=== PATIENT | female | born 1985 | race Caucasian/White ===

== ENCOUNTER 2017-09-19 20:54 | Emergency (ER) | payer OTHER ==
--- NOTE | 2017-09-19 21:07 | PDOC ---
Rapid Medical Evaluation Time Seen by Provider: 09/19/17 21:05 Medical Evaluation: Allergies Allergy/AdvReac Type Severity Reaction Status Date / Time No Known Allergies Allergy Verified 08/18/13 20:52 09/19/17 21:05 I have performed a brief in-person evaluation of this patient. The patient presents with a chief complain of: right flank pain with urinary frequency/urgency with nausea/vomiting but deneis hematuria. Pt states similar to her previous Pyelonephritis Pt has H/O Pyelonephiritis and renal colic +++ Pertinent physical exam findings: I have ordered the following: UA/UPREG The patient will proceed to the ED for further evaluation. 09/19/17 21:09
[2017-09-19 21:09] VITALS: BP 127/57; PULSE 97; TEMP 98.4; BMI 40.2
[2017-09-19 21:53] LABS: URINE APPEARANCE CLOUDY; URINE BILIRUBIN NEGATIVE (NEGATIVE); URINE BLOOD 1+ (NEGATIVE); URINE COLOR YELLOW; URINE GLUCOSE (UA) NEGATIVE (NEGATIVE); URINE KETONE NEGATIVE (NEGATIVE); URINE NITRITE NEGATIVE (NEGATIVE)
[2017-09-19 22:14] LABS: URINE LEUK ESTERASE 3+ (NEGATIVE); URINE PROTEIN 1+ (NEGATIVE)
[2017-09-19 22:41] LABS: URINE BACTERIA RARE /hpf (NONE SEEN); URINE MUCUS FEW; URINE RBC 18 /hpf (0-3); URINE WBC 91 /hpf (3-5)
--- NOTE | 2017-09-19 23:37 | PDOC ---
History of Present Illness - General History Source: Patient Exam Limitations: No Limitations - History of Present Illness Initial Comments: 09/20/17 00:25 The patient is a 32 year old female, A0, with no significant past medical history, who presents to the emergency department with, sharp right sided abdominal pain and severe flank pain beginning yesterday. She describes her pain to be worsening and radiating upwards. She reports urinary frequency and urgency but, denies dysuria. She reports emesis. Secondary to her symptoms she reports a subjective fever and chills. She reports her last menses to be in late July. She denies abdominal pain and bleeding. She denies recent headache or dizziness. She denies diarrhea or constipation. She denies recent chest pain or shortness of breath. Allergies: NKA Past surgical history: None reported. Social history: Smoker. Denies EtOH use and recreational drug use. <Arlene Figueroa - Last Filed: 09/20/17 00:57> <Jon Flores - Last Filed: 09/20/17 02:43> - General Chief Complaint: Pain, Acute Stated Complaint: PAIN Time Seen by Provider: 09/19/17 21:05 Past History <Arlene Figueroa - Last Filed: 09/20/17 00:57> - Past Medical History Asthma: No Cancer: No Cardiac Disorders: No COPD: No Diabetes: No Disorders: Yes HTN: No Kidney Stones: Yes Seizures: No Thyroid Disease: No Other medical history: kidney infections - Reproductive History (#): 7 Para: 5 Cervical CA: No Dysfunctional Uterine Bleeding: No Ectopic : No Endometrial CA: No Polycystic Ovaries: No Therapeutic (s) & number: Yes (2) Tubal Ligation: No - Suicide/Smoking/Psychosocial Hx Smoking Status: Yes Smoking History: Current every day smoker Have you smoked in the past 12 months: Yes Number of Cigarettes Smoked Daily: 5 Information on smoking cessation initiated: No Hx Alcohol Use: No Drug/Substance Use Hx: No Substance Use Type: None Hx Substance Use Treatment: No <Jon Flores - Last Filed: 09/20/17 02:43> - Past Medical History Allergies/Adverse Reactions: Allergies Allergy/AdvReac Type Severity Reaction Status Date / Time No Known Allergies Allergy Verified 09/19/17 21:08 Home Medications: Ambulatory Orders No Home Medications 0 dose .ROUTE UTDICT 08/18/13 Acetaminophen [Tylenol .Regular Strength -] 650 mg PO Q6H #30 tablet 08/19/13 Nitrofurantoin Monohyd/M-Cryst [Macrobid] 100 mg PO BID #14 capsule 08/19/13 Pnv with Ca,No.71/Iron/FA [ Vitamin Tablet] 1 each PO DAILY #90 tablet 08/19/13 Cephalexin [Keflex] 500 mg PO QID #40 capsule 09/20/17 Review of Systems - Review of Systems Able to Perform ROS?: Yes Comments:: 09/20/17 00:26 CONSTITUTIONAL: +Subjective fever. +Chills. No fatigue EYES: No visual changes ENT: No ear pain, no sore throat CARDIOVASCULAR: No chest pain, no palpitations RESPIRATORY: No cough, no SOB GI: +abdominal pain. +Emesis. No constipation, no diarrhea GENITOURINARY: +Urinary frequency. +Urinary urgency. +Flank pain. No dysuria, no hematuria MUSKULOSKELETAL: No joint pain, no myalgias SKIN: No rash NEURO: No headache All Other Systems: Reviewed and Negative <Arlene Figueroa - Last Filed: 09/20/17 00:57> *Physical Exam - Vital Signs Last Vital Signs Temp Pulse Resp BP Pulse Ox 98.4 F 97 H 18 127/57 99 09/19/17 21:05 09/19/17 21:05 09/19/17 21:05 09/19/17 21:05 09/19/17 21:05 - Physical Exam Comments: 09/20/17 00:57 CONSTITUTIONAL: Well-appearing; well-nourished; in no apparent distress HEAD: Normocephalic; atraumatic EYES: PERRL; EOM intact ENMT: External appears normal; normal oropharynx NECK: Supple; non-tender; no cervical lymphadenopathy CARD: Normal S1, S2; no murmurs, rubs, or gallops RESP: Normal chest excursion with respiration; breath sounds clear and equal bilaterally; no wheezes, rhonchi, or rales ABD: +Mild right sided abdominal tenderness. +Severe right CVA tenderness. Soft , non-distended; no palpable organomegaly, no palpable hernias EXT: Normal ROM in all four extremities; non-tender to palpation; distal pulses intact SKIN: Warm, dry, no rash NEURO: No focal neurological deficiencies. <Arlene Figueroa - Last Filed: 09/20/17 00:57> - Vital Signs Last Vital Signs Temp Pulse Resp BP Pulse Ox 98.4 F 97 H 18 127/57 99 09/19/17 21:05 09/19/17 21:05 09/19/17 21:05 09/19/17 21:05 09/19/17 21:05 <Jon Flores - Last Filed: 09/20/17 02:43> ED Treatment Course - LABORATORY CBC & Chemistry Diagram: 09/20/17 00:12 09/20/17 00:12 - ADDITIONAL ORDERS Additional order review: Laboratory Results 09/19/17 21:10 Urine Color Yellow Urine Appearance Cloudy Urine pH 5.0 Ur Specific [place] 1.025 Urine Protein 1+ H Urine Glucose (UA) Negative Urine Ketones Negative Urine Blood 1+ H Urine Nitrite Negative Urine Bilirubin Negative Urine Urobilinogen 2.0 H Urine WBC (Auto) 91 Urine RBC (Auto) 18 Ur Epithelial Cells Few Urine Bacteria Rare Urine Mucus Few Urine HCG, Qual Positive - Medications Given in the ED: ED Medications Discontinued Medications Generic Name Dose Route Start Last Admin Trade Name Jose Albertoq PRN Reason Stop Dose Admin Acetaminophen 1,000 mg 09/20/17 00:10 09/20/17 00:14 Ofirmev Injection - IVPB 09/20/17 00:11 1,000 mg ONCE ONE Administration <Arlene Figueroa - Last Filed: 09/20/17 00:57> - LABORATORY CBC & Chemistry Diagram: 09/20/17 00:12 09/20/17 00:12 - ADDITIONAL ORDERS Additional order review: Laboratory Results 09/19/17 21:10 Urine Color Yellow Urine Appearance Cloudy Urine pH 5.0 Ur Specific [place] 1.025 Urine Protein 1+ H Urine Glucose (UA) Negative Urine Ketones Negative Urine Blood 1+ H Urine Nitrite Negative Urine Bilirubin Negative Urine Urobilinogen 2.0 H Urine WBC (Auto) 91 Urine RBC (Auto) 18 Ur Epithelial Cells Few Urine Bacteria Rare Urine Mucus Few Urine HCG, Qual Positive <Jon Flores - Last Filed: 09/20/17 02:43> Medical Decision Making - Medical Decision Making 09/20/17 01:55 Patient is a 32-year-old female, 6 para 5, at approximately 6 weeks gestation by dates who presents to the ER with tactile fevers, severe left- sided flank pain, urgency and urinary frequency. In the ER, patient is awake and alert, with significant left CVA tenderness to palpation. CBC reveals leukocytosis of 16,000 with predominance of neutrophils. Urinalysis reveals 91 WBCs per high-power field with some red cells present. Kidney ultrasound reveals no evidence of hydronephrosis or hydroureter. Urinary bladder is collapsed. Limited ultrasound reveals an IUP at 6 weeks and 4 days gestation with FH. I suspect pyelonephritis. Given the patient presentation, she is at high risk for complications will require admission for IV antibiotics. We'll consult FIELD TECHNICIAN. 09/20/17 02:29 Patient reassessed. Patient continues to complain of mild right flank discomfort. I've discussed the ultrasound findings and the plan of care with the patient however, given familial responsibilities, patient cannot be admitted inpatient and stay for IV antibiotics. Patient understands the risk associated with inadequately treated acute pyelonephritis in which includes but is not limited to severe sepsis, miscarriage and even . Patient will receive a dose of IV ceftriaxone will be discharged with by mouth cephalexin for further treatment. Patient instructed to return at the earliest opportunity. Patient expressed understanding. <Jon Flores - Last Filed: 09/20/17 02:43> *DC/Admit/Observation/Transfer - Attestations Scribe Attestion: 09/20/17 00:27 Documentation prepared by Arlene Figueroa, acting as medical imaging technologist for Jon Flores MD. <Arlene Figueroa - Last Filed: 09/20/17 00:57> - Attestations Physician Attestion: 09/20/17 01:54 The documentation was prepared by the scribe under my direct supervision. I have reviewed the documentation which correctly represents the findings, medical decision-making and critical action taken by me. <Jon Flores - Last Filed: 09/20/17 02:43> Diagnosis at time of Disposition: Acute pyelonephritis in first trimester, antepartum - Discharge Dispostion Disposition: AGAINST MEDICAL ADVICE Condition at time of disposition: Fair - Prescriptions Prescriptions: Cephalexin [Keflex] 500 mg PO QID #40 capsule - Patient Instructions Printed Discharge Instructions: DI for Kidney Infection Additional Instructions: Your leaving AGAINST MEDICAL ADVICE. You're at risk of severe overwhelming infection, miscarriage and even . Take antibiotics as advised. Return immediately at the earliest convenience. Follow-up with FIELD TECHNICIAN.
[2017-09-20] MEDS ORDERED: ACETAMINOPHEN INJECTION 100 ML IVPB ONE
[2017-09-20] MEDS ORDERED: SODIUM CHLORIDE 1,000 ML IV STA (00:10)
[2017-09-20] MEDS ORDERED: ACETAMINOPHEN 1000 MG/100 ML VIAL (NON FORMULARY) IVPB ONE (00:10)
[2017-09-20 00:42] LABS: BASOPHIL 0.1 % (0-2.0); EOSINOPHIL 0.1 % (0-4.5); MCH 30.1 pg (25.7-33.7); MCHC 33.7 g/dl (32.0-36.0); MEAN CELL VOLUME 89.2 fl (80-96); MEAN PLT VOLUME 8.5 fl (7.5-11.1); NEUTROPHILS 90.9 % (42.8-82.8); PLATELET COUNT 273 K/MM3 (134-434); RDW 12.7 % (11.6-15.6); WHITE BLOOD COUNT 16.3 K/mm3 (4.0-10.0)
[2017-09-20 01:08] LABS: ALBUMIN 4.1 g/dl (3.4-5.0); ALK PHOS 52 U/L (45-117); ANION GAP 11 (8-16); BILIRUBIN,TOTAL 0.4 mg/dL (0.2-1.0); CALCIUM 8.7 mg/dL (8.5-10.1); CO2 23 mmol/L (21-32); CREATININE 0.6 mg/dL (0.55-1.02); GLUCOSE,RANDOM 94 mg/dL (74-106); SGOT/AST 6 U/L (15-37); SGPT/ALT 13 U/L (12-78); TOT PROT 7.5 g/dl (6.4-8.2)
[2017-09-20] MEDS ORDERED: CEFTRIAXONE 1 GM in DEXTROSE 5%-WATER - 50 ML IVPB ONE (01:21)
[2017-09-20] MEDS ORDERED: CEFTRIAXONE 1 GM/50 ML BAG ONE (02:22)
[2017-09-20 12:20] LABS: URINE LEUK ESTERASE 1+ (NEGATIVE)
== END 2017-09-20 03:03 | disposition left against medical advice (07) ==
LOC: JER 20:54
PROC: 3E033NZ Introduction of Analgesics, Hypnotics, Sedatives into Peripheral Vein, Percutaneous Approach (ICD-10-PCS; principal; 2017-09-19)
PROC: 3E03329 Introduction of Other Anti-infective into Peripheral Vein, Percutaneous Approach (ICD-10-PCS; 2017-09-19)
PROC: 3E0337Z Introduction of Electrolytic and Water Balance Substance into Peripheral Vein, Percutaneous Approach (ICD-10-PCS; 2017-09-19)
DX: O23.01 Infections of kidney in pregnancy, first trimester (principal); Z3A.01 Less than 8 weeks gestation of pregnancy
CPT/HCPCS: 36415; 76775-TC; 76801-TC; 76856-TC; 80053; 81003; 81015; 84702; 84703; 85025; 87086; 87186; 96361; 96365; 96375; 99284-25

== ENCOUNTER 2017-12-07 13:11 | Day surgery (SDC) | payer OTHER ==
[2017-12-07 13:17] VITALS: BMI 19.1
--- NOTE | 2017-12-07 13:26 | PDOC ---
History of Present Illness - General History Source: Patient - History of Present Illness Timing/Duration: reports: constant, getting worse Abdominal Pain Onset Location: reports: suprapubic <Eusebio Barrientos - Last Filed: 12/07/17 18:29> <Wilton Damian - Last Filed: 12/12/17 02:46> - General Chief Complaint: Pain Stated Complaint: ABD PAIN (17 WKS ) Time Seen by Provider: 12/07/17 13:21 Past History - Past Medical History Asthma: No Cancer: No Cardiac Disorders: No COPD: No Diabetes: No Disorders: Yes HTN: No Kidney Stones: Yes Seizures: No Thyroid Disease: No - Reproductive History (#): 7 Para: 5 Cervical CA: No Dysfunctional Uterine Bleeding: No Ectopic : No Endometrial CA: No Polycystic Ovaries: No Therapeutic (s) & number: Yes (2) Tubal Ligation: No - Suicide/Smoking/Psychosocial Hx Smoking Status: Yes Smoking History: Current every day smoker Have you smoked in the past 12 months: Yes Number of Cigarettes Smoked Daily: 10 Information on smoking cessation initiated: No Hx Alcohol Use: No Drug/Substance Use Hx: No Substance Use Type: None Hx Substance Use Treatment: No <Eusebio Barrientos - Last Filed: 12/07/17 18:29> <Wilton Damian - Last Filed: 12/12/17 02:46> - Past Medical History Allergies/Adverse Reactions: Allergies Allergy/AdvReac Type Severity Reaction Status Date / Time No Known Allergies Allergy Verified 12/07/17 13:17 Home Medications: Ambulatory Orders Pnv with Ca,No.71/Iron/FA [ Vitamin Tablet] 1 each PO DAILY #90 tablet 08/19/13 Acetaminophen [Tylenol .Regular Strength -] 650 mg PO Q4H PRN tablet 12/07/17 Ibuprofen [Motrin -] 600 mg PO Q4H PRN #20 tablet 12/07/17 Review of Systems - Review of Systems Constitutional: No: Chills, Fever ABD/GI: Yes: Abdominal cramping. No: Nausea, Vomiting : No: Dysuria <Eusebio Barrientos - Last Filed: 12/07/17 18:29> *Physical Exam - Vital Signs Last Vital Signs Temp Pulse Resp BP Pulse Ox 98.7 F 93 H 18 115/58 98 12/07/17 13:13 12/07/17 13:13 12/07/17 13:13 12/07/17 13:13 12/07/17 13:13 - Physical Exam General Appearance: Yes: Appropriately Dressed. No: Apparent Distress HEENT: positive: Normal Voice Neck: positive: Supple Respiratory/Chest: negative: Respiratory Distress Female Pelvic Exam: positive: normal adnexa, vaginal bleeding, other (mod amount of vag bleed, unable to visualize or palpate cervix (pt reports she has been told she has a funneled shaped uterus, has history of difficulty finding cervix on pelvic exam)) Gastrointestinal/Abdominal: positive: Soft. negative: Tender, Distended, Guarding, Rebound Musculoskeletal: negative: CVA Tenderness Integumentary: positive: Dry, Warm Neurologic: positive: Fully Oriented, Alert, Normal Mood/Affect <Eusebio Barrientos - Last Filed: 12/07/17 18:29> - Vital Signs Last Vital Signs Temp Pulse Resp BP Pulse Ox 98.6 F 75 18 115/74 100 12/07/17 21:59 12/07/17 21:59 12/07/17 21:59 12/07/17 21:59 12/07/17 22:00 <Wilton Damian - Last Filed: 12/12/17 02:46> ED Treatment Course - LABORATORY CBC & Chemistry Diagram: 12/07/17 13:38 12/07/17 13:38 <uEsebio Barrientos - Last Filed: 12/07/17 18:29> - LABORATORY CBC & Chemistry Diagram: 12/07/17 13:38 12/07/17 13:38 - ADDITIONAL ORDERS Additional order review: 12/07/17 13:38 RBC 4.30 MCV 90.9 MCHC 32.9 RDW 13.0 MPV 8.0 Neutrophils % 70.1 D Lymphocytes % 21.6 D Monocytes % 6.2 Eosinophils % 1.9 D Basophils % 0.2 - Medications Given in the ED: ED Medications Discontinued Medications Generic Name Dose Route Start Last Admin Trade Name Freq PRN Reason Stop Dose Admin Sodium Chloride 1,000 mls @ 1,000 mls/hr 12/07/17 13:35 12/07/17 14:29 Normal Saline - IV 12/07/17 14:34 1,000 mls/hr ASDIR STA Administration Oxytocin/Sodium Chloride 20 unit in 1,000 mls @ 200 mls/hr 12/07/17 15:00 15:31 Normal Saline+20 Units Oxytocin - IV 200 mls/hr ASDIR PAULETTE Administration Ketorolac Tromethamine 30 mg 12/07/17 20:35 12/07/17 21:15 Toradol Injection - IVPUSH 12/07/17 20:36 30 mg ONCE ONE Administration Meperidine HCl 50 mg 12/07/17 15:51 12/07/17 15:58 Demerol Injection - IM 12/07/17 15:52 50 mg ONCE ONE Administration Misoprostol 200 mcg 12/07/17 15:45 12/07/17 15:58 Cytotec - PO 12/07/17 15:46 200 mcg ONCE ONE Administration Morphine Sulfate 4 mg 12/07/17 15:16 12/07/17 15:31 Morphine Injection - IVPUSH 12/07/17 15:17 4 mg ONCE ONE Administration <Wilton Damian - Last Filed: 12/12/17 02:46> Medical Decision Making - Medical Decision Making 12/07/17 13:25 32-year-old female, , (s/p 1 spon AB), approximately 17 weeks by dates, frequent utis/pylelo, here with abdominal pain and vaginal bleed. Patient states for the past week she's noticed vaginal spotting, but was waiting until she saw her primary doctor next week to seek evaluation. Has not yet had for unclear reasons but states she has her first appt next Friday. This a.m. pt developed abdominal cramping that is approximately 2 minutes apart. Has not noticed any clots and no nausea, vomiting, dysuria, fever or chills. Patient was seen in the ED 09/20/2017 when she was initially told she was . Had ultrasound then revealing an IUP at approximately 6 weeks on report. Beta was >50K at time. See exam Possible miscarriage in 2nd trimester Stable in ED w/ benign abd and moderate blood in vault, unable to visualize or palpate cervical os -labs -US -IVF -OB c/s 12/07/17 13:[address] Briceno of OB, aware labs and ultrasound are pending. M.D. also requesting transvaginal US to assess cervical length. Wants to be contacted once ultrasound reports comes back 12/07/17 14:50 Ultrasound read as 14 weeks IUP with no heart rate detected. Beta today over 300. Most likely missed AB. As per Dr Briceno, patient to get Pitocin drip and a dose of po Cytotec in ED. M.D. wants to be contacted once patient begins to abort. Wants tissue collected and sent to lab 12/07/17 17:13 No passage of tissue at this time. Pain free at this time and appears comfortable. Will contact [facility] as patient may need D&C in OR 12/07/17 17:22 As per [facility], give 400 mcg of cytotec vaginally and is enroute to see patient in ED 12/07/17 18:10 Multiple large blood clots in urinal, resembling possible tissue. Tissue collected in formalin container and reviewed by Dr. Briceno who is now at bedside. States specimen is blood clot and not actually parts of fetus. Evaluating patient now 12/07/17 18:25 Dr. Briceno was able to retrieve intact fetus during pelvic exam. Fetus placed in formalin jar to be sent to pathology. As per [facility], patient needs to be admitted for D&C for incomplete AB, has not yet passed placenta <Eusebio Barrientos - Last Filed: 12/07/17 18:29> - Medical Decision Making The patient was seen and evaluated in conjunction with VIRGINIA Barrientos under my direct supervision, ancillary studies were reviewed. I independently interviewed and evaluated the patient and I agree with the plan as outlined by VIRGINIA Barrientos . <Wilton Damian - Last Filed: 12/12/17 02:46> *DC/Admit/Observation/Transfer - Discharge Dispostion Admit: Yes <Eusebio Barrientos - Last Filed: 12/07/17 18:29> <Wilton Damian - Last Filed: 12/12/17 02:46> Diagnosis at time of Disposition: Missed - Discharge Dispostion Disposition: HOME Condition at time of disposition: Stable
[2017-12-07] MEDS ORDERED: SODIUM CHLORIDE 1,000 ML IV STA (13:35)
[2017-12-07 13:55] LABS: BASO % 0.2 % (0-2.0); EOS % 1.9 % (0-4.5); HEMATOCRIT 39.1 % (32.4-45.2); HEMOGLOBIN 12.9 GM/dL (10.7-15.3); LYMPH % 21.6 % (8-40); MCH 29.9 pg (25.7-33.7); MCHC 32.9 g/dl (32.0-36.0); MEAN CELL VOLUME 90.9 fl (80-96); MONO % 6.2 % (3.8-10.2); NEUT % 70.1 % (42.8-82.8); PLATELET COUNT 240 K/MM3 (134-434); WHITE BLOOD COUNT 7.9 K/mm3 (4.0-10.0)
[2017-12-07 14:07] LABS: INR 1.06 (0.82-1.09)
[2017-12-07 14:12] LABS: ALBUMIN 3.3 g/dl (3.4-5.0); ANION GAP 10 (8-16); BLOOD UREA NITROGEN 5 mg/dL (7-18); CALCIUM 8.5 mg/dL (8.5-10.1); CHLORIDE 106 mmol/L (98-107); CO2 25 mmol/L (21-32); CREATININE 0.5 mg/dL (0.55-1.02); GLUCOSE,RANDOM 72 mg/dL (74-106); POTASSIUM 3.8 mmol/L (3.5-5.1); SGOT/AST 10 U/L (15-37); SGPT/ALT 13 U/L (12-78); SODIUM 141 mmol/L (136-145)
[2017-12-07 14:14] LABS: ALK PHOS 54 U/L (45-117); BILIRUBIN,TOTAL 0.4 mg/dL (0.2-1.0); TOT PROT 7.1 g/dl (6.4-8.2)
[2017-12-07] MEDS ORDERED: OXYTOCIN 20 UNITS in 0.9% NS 20 UNIT/1,000 ML INFUS.BAG IV SCH (15:00)
[2017-12-07] MEDS ORDERED: morphine CARPU-JECT 4 MG/1 ML DISP.SYRIN IVPUSH ONE (15:16)
[2017-12-07] MEDS ORDERED: OXYTOCIN 10 UNITS/ML VIAL ONE ×2 (15:17→20:09)
[2017-12-07] MEDS ORDERED: MORPHINE SULFATE 10 MG/1 ML *VIAL ONE (15:26)
[2017-12-07] MEDS ORDERED: MISOPROSTOL 200 MCG TABLET PO ONE ×2 (15:30→15:45)
[2017-12-07] MEDS ORDERED: MISOPROSTOL 100 MCG TABLET PV ONE ×2 (15:30→17:30)
[2017-12-07] MEDS ORDERED: MISOPROSTOL 200 MCG TABLET PV ONE (15:30)
[2017-12-07] MEDS ORDERED: MEPERIDINE HCL CARPU-JECT 50 MG/1 ML DISP.SYRIN IM ONE (15:51)
[2017-12-07] MEDS ORDERED: MEPERIDINE HCL CARPU-JECT 50 MG/1 ML DISP.SYRIN ONE (15:54)
--- NOTE | 2017-12-07 18:36 | HP ---
Past Medical History - Primary Care Physician PCP:: Altagracia Briceno - Admission Chief Complaint: 32 yrs , LMP 08/07/17 17.4 weeks is admitted for Incomplete ab History of Present Illness: h/o pregn diagnosed when she visited ER on 09/20/17 sono showed 6.4 weeks sliup she states she went for follow up at [address] [place] [address] clinic for last 1 week she c/o vaginal bleeding on & off c/o pain & cramps since today AM sono done today ut is 13.9x8.7 . 14 weeks IUP, absent FHR . pt passed fetus in ER at 6.30 PM History Source: Patient Limitations to Obtaining History: No Limitations - Past Medical History STOCK CHECKER: No: Migraine, Seizure Cardiovascular: No: HTN, Murmur Pulmonary: No: Asthma Renal/: Yes: UTI (diagnosed in the clinic 1 month ago. h/o recurrent UTI , pt follows with fish fryer) ...: 6 ...Para: 4 (3 , 2006,2006, 2011) ...Term: 3 ...: 1 (c/section at 26 weeks at [facility] in 2012 2lbs ) ...Induced : 1 (2015) ...LMP: 08/07/17 ... Weeks Gestation by Dates: 17.3 ...EDC by Dates: 04/14/18 ...EDC by Sono: 04/14/18 Heme/Onc: Yes: Anemia Infectious Disease: Yes: Other (denies h/o std) Psych: Yes: Other (denies mental health disorders) Additional Medical History: EFM 170 occ variable decel. Cat 2 no contraction - Past Surgical History Past Surgical History: Yes: None, (2012 for 26 weeks gestation at [facility] ) Hx Myomectomy: No Hx Transabdominal Cerclage: No - Smoking History Smoking history: Current every day smoker Have you smoked in the past 12 months: Yes Aproximately how many cigarettes per day: 10 - Alcohol/Substance Use Hx Alcohol Use: No History of Substance Use: reports: None Home Medications - Allergies Allergies/Adverse Reactions: Allergies Allergy/AdvReac Type Severity Reaction Status Date / Time No Known Allergies Allergy Verified 12/07/17 13:17 - Home Medications Home Medications: Ambulatory Orders Pnv with Ca,No.71/Iron/FA [ Vitamin Tablet] 1 each PO DAILY #90 tablet 08/19/13 Physical Exam - Maternity Vital Signs: Vital Signs Temperature 97.5 F L 12/07/17 16:27 Pulse Rate 85 12/07/17 16:27 Respiratory Rate 18 12/07/17 16:27 Blood Pressure 118/67 12/07/17 16:27 O2 Sat by Pulse Oximetry (%) 99 12/07/17 16:27 Constitutional: Yes: Well Nourished Eyes: Yes: WNL HENT: Yes: WNL, Normocephalic Neck: Yes: WNL Cardiovascular: Yes: WNL Lungs: Clear to auscultation Breast(s): Yes: WNL - Abdominal Exam/OB Fundal Height: 14 (14 weeks size ut, passed fetus in ER still born, placenta not passed , blood clots removed from cervx & vagina ) Number of Fetuses: Single Contractions: Yes Intensity: Strong Heart Rate (range): abs - Vaginal Exam/OB Vaginal Bleediing: Yes, Fresh Blood (bleeding with blood clots) Speculum Exam: Yes Dilatation (cm): os ope - Physical Exam Musculoskeletal: Yes: WNL Extremities: Yes: WNL. No: Calf Tenderness Edema: No Integumentary: Yes: WNL Deep Tendon Reflex Grade: Normal +2 ...Motor Strength: WNL Psychiatric: Yes: WNL - Labs Lab Results: CBC, BMP 12/07/17 13:38 12/07/17 13:38 Laboratory Tests 09/20/17 12/07/17 12/07/17 00:12 13:21 13:38 PT with INR 12.00 H INR 1.06 AST ALT Beta HCG, Quant 67366.7 Blood Type O POSITIVE Antibody Screen Negative 12/07/17 13:38 PT with INR INR AST 10 L ALT 13 Beta HCG, Quant 313.1 Blood Type Antibody Screen Problem List - Problems (1) 17 weeks gestation of Code(s): Z3A.17 - 17 WEEKS GESTATION OF (2) demise Code(s): JXK8643 - (3) Incomplete Code(s): O03.4 - INCOMPLETE SPONTANEOUS WITHOUT COMPLICATION (4) Previous section Code(s): Z98.891 - HISTORY OF UTERINE SCAR FROM PREVIOUS SURGERY Assessment/Plan 32 yrs 17.3 weeks by dates & sono , demise, passed fetus in ER after giving cytotec & iv pitocin , placenta still retained , bleeding heavy plan evacuation curettage under GA
[2017-12-07] MEDS ORDERED: PROPOFOL 20 ML ONE (19:39)
[2017-12-07] MEDS ORDERED: MIDAZOLAM HCL 2 MG/2 ML SINGLE DOSE VIAL ONE (19:39)
[2017-12-07] MEDS ORDERED: IBUPROFEN 400 MG TABLET (FP) PO PRN (19:43)
[2017-12-07] MEDS ORDERED: ACETAMINOPHEN 325 MG TABLET (FP) PO PRN (19:43)
[2017-12-07] MEDS ORDERED: ceFAZolin SODIUM 1 GM VIAL IVPB ONE (19:56)
[2017-12-07] MEDS ORDERED: ceFAZolin SODIUM 1 GM VIAL ONE (19:59)
[2017-12-07] MEDS ORDERED: DEXAMETHASONE SOD PHOSPHATE 4 MG/1 ML VIAL ONE (19:59)
--- NOTE | 2017-12-07 20:17 | OP ---
Operative Note - Note: Operative Date: 12/07/17 Pre-Operative Diagnosis: 17 qweeks demise, Incomplete Operation: evacuation curettage Findings: ut 14 weeks size , blood clots removed from vagina & cervix. cx os open placenta at os , removed with ring forcep 12 #canula used , suction done followed by curettage adnexa [employer] attendant Surgeon: Altagracia Briceno Anesthesiologist/CRIB TENDER: Jenni Valadez Anesthesia: General Specimens Removed: placenta & uterine contents , curettings Estimated Blood Loss (mls): 100 Fluid Volume Replaced (mls): 400 (iv ancef 1 gm in OR ) Operative Report Dictated: Yes
[2017-12-07] MEDS ORDERED: ONDANSETRON 4 MG/2 ML VIAL IVPUSH PRN (20:30)
[2017-12-07] MEDS ORDERED: KETOROLAC TROMETHAMINE 30 MG/1 ML VIAL IVPUSH ONE (20:35)
[2017-12-07] MEDS ORDERED: LACTATED RINGERS SOLUTION 1,000 ML IV SCH (20:45)
--- NOTE | 2017-12-07 21:01 | OP ---
DATE OF OPERATION: 12/07/2017 PREOPERATIVE DIAGNOSIS: Seventeen weeks demise incomplete . OPERATION DONE: Evacuation and curettage. ANESTHESIA: General. ANESTHESIOLOGIST: Jenni Valadez DO FINDINGS: This is a 32-year-old, 6, para 3-1-1-4, LMP on August 07, 2017, 17.3 weeks gestation by early sono . She is diagnosed demise of 14 weeks.on sono Patient passed the fetus in the emergency room and the placenta still retained, is bleeding heavy, so patient taken in the OR. PROCEDURE: Patient is taken to the operating room table and general anesthesia was given, lithotomy position. Pubis, perineum, vagina was painted with Betadine, draped in usual manner. Time out was done. Pelvic examination was done. Uterus was anteverted, 14 weeks size. Cervix was posterior. Vaginal was full of blood clots. Adnexa was not palpable. Blood clots were removed from the vagina and the cervix. Weighted speculum was put and anterior lip of the cervix was held with a ring forceps and then with ovum forceps. The placenta, which was seen at the os, was removed and then number 12 suction cannula was introduced into the uterine cavity and suction curettage was done, then curetting was done. Gritty sensation was felt. Completion of the procedure was attained. Instruments were removed. Pelvic examination was done. Uterus was anteverted and firm, now os was closing. Patient tolerated procedure well. Estimated blood loss was 100 mL. She received 1 g of IV Ancef prophylactically. She was transferred to the recovery room in stable condition. Andrea [id number] MTDD
[2017-12-07] MEDS ORDERED: KETOROLAC TROMETHAMINE 30 MG/1 ML VIAL ONE (21:15)
[2017-12-07 21:39] VITALS: PULSE 75
[2017-12-07 22:01] VITALS: BP 115/74; TEMP 98.6
== END 2017-12-07 22:30 | disposition home or self-care (01) ==
LOC: JER 13:11 → JASUSAT 18:27 → J3W 21:36 → JASUSAT 22:30
PROVIDERS: ATTEND Obstetrics & Gynecology
PROC: 10D17ZZ Extraction of Products of Conception, Retained, Via Natural or Artificial Opening (ICD-10-PCS; principal; 2017-12-07 20:00)
DX: O02.1 Missed abortion (principal); Z3A.17 17 weeks gestation of pregnancy
CPT/HCPCS: 36415; 76801-TC; 76817-TC; 80053; 84702; 85025; 85610; 86850; 86900; 86901; 94760; 99282-25

== ENCOUNTER 2019-05-26 17:12 | Emergency (ER) | payer OTHER ==
--- NOTE | 2019-05-26 17:25 | PDOC ---
Rapid Medical Evaluation Time Seen by Provider: 05/26/19 17:23 Medical Evaluation: Allergies Allergy/AdvReac Type Severity Reaction Status Date / Time No Known Allergies Allergy Verified 12/07/17 13:17 05/26/19 17:23 HPI:Bleeding PV x 3 weeks PE: No gross deficits ORDERS: Labs Discharge Disposition - Diagnosis Dysfunctional uterine bleeding - Referrals - Patient Instructions - Post Discharge Activity
[2019-05-26 17:28] VITALS: BP 114/80; PULSE 89; TEMP 98.2; BMI 27.4
[2019-05-26 18:04] LABS: BASO % 1.3 % (0-2.0); EOS % 2.3 % (0-4.5); HEMATOCRIT 41.3 % (32.4-45.2); HEMOGLOBIN 13.9 GM/dL (10.7-15.3); LYMPH % 28.5 % (8-40); MCH 30.2 pg (25.7-33.7); MCHC 33.6 g/dl (32.0-36.0); MEAN CELL VOLUME 89.9 fl (80-96); MEAN PLT VOLUME 8.1 fl (7.5-11.1); NEUT % 61.9 % (42.8-82.8); PLATELET COUNT 295 K/MM3 (134-434); RBC 4.59 M/mm3 (3.60-5.2); RDW 13.2 % (11.6-15.6); WHITE BLOOD COUNT 8.8 K/mm3 (4.0-10.0)
[2019-05-26 18:20] LABS: INR 1.04 (0.83-1.09); PROTHROMBIN TIME (PATIENT) 12.3 SEC (9.7-13.0)
[2019-05-26] MEDS ORDERED: LIDOCAINE 5% TOPICAL PATCH ONE ×2 (19:08→19:22)
--- NOTE | 2019-05-26 19:11 | PDOC ---
History of Present Illness - General Chief Complaint: Vaginal Bleeding Stated Complaint: VAGINAI BLEEDING Time Seen by Provider: 05/26/19 17:23 - History of Present Illness Initial Comments: 05/26/19 19:28 CHIEF COMPLAINT: vaginal bleeding, abscess HISTORY OF PRESENT ILLNESS: 34 yo s/p D&C for demise at 17 wks last year, presents to ED with vaginal bleeding x 2 weeks and bump to R shoulder. Reports waking up on Friday with bump and the pain ahd size of the bump has increased since then. Patient reports that she is using the Depo shot and that she has had her period for the last two weeks, but "it stopped when I got to the ER." She denies any fever, chills, nausea, vomiting, diarrhea. Patient denies any chance of . No recent travel or sick contacts. PAST MEDICAL HISTORY: Denies past medical history FAMILY HISTORY: Denies SOCIAL HISTORY:Denies tobacco, alcohol, illicit drug use. SURGICAL HISTORY: Denies ALLERGIES: No known drug allergies REVIEW OF SYSTEMS General/Constitutional: Denies fever or chills. Denies weakness, weight change. HEENT: Denies change in vision. Denies ear pain or discharge. Denies sore throat. Cardiovascular: Denies chest pain or shortness of breath. Respiratory: Denies cough, wheezing, or hemoptysis. Gastrointestinal: Denies nausea, vomiting, diarrhea or constipation. Denies rectal bleeding. Genitourinary: Vaginal bleeding x 2 weeks. Musculoskeletal: Denies joint or muscle swelling or pain. Denies neck or back pain. Skin: Painful bump to R upper back x 3 days. Denies rash or easy bruising. Neurologic: Denies headache, vertigo, loss of consciousness, or loss of sensation. PHYSICAL EXAM General Appearance: Well-appearing, appropriately dressed. No apparent distress , no intoxication. HEENT: EOMI, PERRLA, normal ENT inspection, normal voice, TMs normal, pharynx normal. No conjunctival pallor. No photophobia, scleral icterus. Neck: Supple. Trachea midline. No tenderness, rigidity, carotid bruit, stridor , lymphadenopathy, or thyromegaly. Respiratory/Chest: Lungs CTAB. No shortness of breath, chest tenderness, respiratory distress, accessory muscle use. No crackles, rales, rhonchi, stridor , wheezing, dullness Cardiovascular: RRR. S1, S2. No JVD, murmur, bradycardia, tachycardia. Vascular Pulses: Dorsalis-Pedis (R): 2+, Dorsalis-Pedis (L): 2+ Gastrointestinal/Abdominal: Normal bowel sounds. Abdomen soft, non-distended. No tenderness or rebound tenderness. No organomegaly, pulsatile mass, guarding , hernia, hepatomegaly, splenomegaly. Lymphatic: No adenopathy, tenderness. Musculoskeletal/Extremities: Normal inspection. FROM of all extremities, normal capillary refill. Pelvis Stable. No CVA tenderness. No tenderness to extremities, pedal edema, swelling, erythema or deformity. Integumentary: Developing abscess approximately 2 inches in diameter over right scapula with central punctate, erythema, and TTP. No fluctuance. Appropriate color, dry, warm. No cyanosis, erythema, jaundice or rash Neurologic: welt stitch cleaner II-XII intact. Fully oriented, alert. Appropriate mood/affect. Motor strength 5/5. No appreciable EOM palsy, facial droop or sensory deficit. 05/26/19 19:35 Past History - Past Medical History Allergies/Adverse Reactions: Allergies Allergy/AdvReac Type Severity Reaction Status Date / Time No Known Allergies Allergy Verified 05/26/19 17:24 Home Medications: Ambulatory Orders Pnv with Ca,No.71/Iron/FA [ Vitamin Tablet] 1 each PO DAILY #90 tablet 08/19/13 Acetaminophen [Tylenol .Regular Strength -] 650 mg PO Q4H PRN tablet 12/07/17 Ibuprofen [Motrin -] 600 mg PO Q4H PRN #20 tablet 12/07/17 Lidocaine HCl 85 gm TP ASDIR #14 cream..g. 05/26/19 Sulfamethoxazole/Trimethoprim [Bactrim Ds -] 1 tab PO BID #14 tablet 05/26/19 Asthma: No Cancer: No Cardiac Disorders: No COPD: No Diabetes: No Disorders: Yes HTN: No Kidney Stones: Yes Seizures: No Thyroid Disease: No - Reproductive History (#): 7 Para: 5 Cervical CA: No Dysfunctional Uterine Bleeding: No Ectopic : No Endometrial CA: No Polycystic Ovaries: No Therapeutic (s) & number: Yes (2) Tubal Ligation: No - Suicide/Smoking/Psychosocial Hx Smoking Status: Yes Smoking History: Current every day smoker Have you smoked in the past 12 months: Yes Number of Cigarettes Smoked Daily: 10 Information on smoking cessation initiated: Yes Hx Alcohol Use: Yes Drug/Substance Use Hx: No Substance Use Type: None Hx Substance Use Treatment: No *Physical Exam - Vital Signs Last Vital Signs Temp Pulse Resp BP Pulse Ox 98.2 F 89 18 114/80 100 05/26/19 17:25 05/26/19 17:25 05/26/19 17:25 05/26/19 17:25 05/26/19 17:25 ED Treatment Course - LABORATORY CBC & Chemistry Diagram: 05/26/19 17:56 - ADDITIONAL ORDERS Additional order review: Laboratory Results 05/26/19 17:56 PT with INR 12.30 INR 1.04 05/26/19 17:56 RBC 4.59 MCV 89.9 MCHC 33.6 RDW 13.2 MPV 8.1 Neutrophils % 61.9 Lymphocytes % 28.5 D Monocytes % 6.0 Eosinophils % 2.3 Basophils % 1.3 D Medical Decision Making - Medical Decision Making 05/26/19 19:40 34 yo s/p D&C for demise at 17 wks last year, presents to ED with vaginal bleeding x 2 weeks and bump to R shoulder. Abscess not drainable at this time. Will rx Bactrim, instructed patient to use warm compress for next two days and gave strict return precautions. Lidocaine patch for pain as EMLA not available. *DC/Admit/Observation/Transfer Diagnosis at time of Disposition: Dysfunctional uterine bleeding, Abscess - Discharge Dispostion Disposition: HOME Condition at time of disposition: Stable Decision to Admit order: No - Prescriptions Prescriptions: Lidocaine HCl 85 gm TP ASDIR #14 cream..g. Sulfamethoxazole/Trimethoprim [Bactrim Ds -] 1 tab PO BID #14 tablet - Referrals Referrals: Zuleyka Luong MD [Staff Physician] - - Patient Instructions Printed Discharge Instructions: DI for Menorrhagia, DI for Skin Abscess Additional Instructions: Please take medications as prescribed. As discussed, finish the entire course of antibiotics even if your symptoms improve. If your symptoms do not improve in 2 days, please return to the ER. - Post Discharge Activity Forms/Work/School Notes: Back to Work
[2019-05-26] MEDS ORDERED: LIDOCAINE 5% TOPICAL PATCH TP ONE (19:14)
[2019-05-26] MEDS ORDERED: SULFAMETHOXAZOLE/TRIMETHOPRIM 800MG/160MG D.S. TABLET PO ONE (19:26)
[2019-05-26] MEDS ORDERED: SULFAMETHOXAZOLE/TRIMETHOPRIM 800MG/160MG D.S. TABLET ONE (19:34)
[2019-05-26] MEDS ORDERED: LIDOCAINE PATCH REMOVAL MC SCH (22:00)
== END 2019-05-26 20:23 | disposition home or self-care (01) ==
LOC: JER 17:12
DX: N93.8 Other specified abnormal uterine and vaginal bleeding (principal); L02.413 Cutaneous abscess of right upper limb; F17.210 Nicotine dependence, cigarettes, uncomplicated
CPT/HCPCS: 36415; 85025; 85610; 86850; 86900; 86901; 99282-25

== ENCOUNTER 2019-07-25 19:08 | Emergency (ER) | payer OTHER ==
[2019-07-25 19:18] VITALS: BP 106/67; PULSE 92; TEMP 98.4; BMI 28.7
--- NOTE | 2019-07-25 19:35 | PDOC ---
History of Present Illness - General Chief Complaint: Cold Symptoms Stated Complaint: SORE THROAT/COUGH Time Seen by Provider: 07/25/19 19:20 History Source: Patient Exam Limitations: Clinical Condition - History of Present Illness Initial Comments: 07/25/19 19:29 Patient with no significant past medical history presented with complaint of 2- day history of persistent dry cough, nasal congestion, runny nose and midsternal chest pain from coughing. Patient reported he declined a similar episode a week ago and was being treated with steroid and albuterol inhaler and wants to make sure she does not have the same to her claim to have. Patient report 7 cigarettes a day smoking history. Denies fever, chills, nausea, vomiting, body aches. Patient did not take anything for cough. Denies any other symptoms Is this a multiple visit Asthma Patient?: No Timing/Duration: other (2 days) Past History - Past Medical History Allergies/Adverse Reactions: Allergies Allergy/AdvReac Type Severity Reaction Status Date / Time No Known Allergies Allergy Verified 07/25/19 19:16 Home Medications: Ambulatory Orders Pnv with Ca,No.71/Iron/FA [ Vitamin Tablet] 1 each PO DAILY #90 tablet 08/19/13 Acetaminophen [Tylenol .Regular Strength -] 650 mg PO Q4H PRN tablet 12/07/17 Ibuprofen [Motrin -] 600 mg PO Q4H PRN #20 tablet 12/07/17 Lidocaine HCl 85 gm TP ASDIR #14 cream..g. 05/26/19 Sulfamethoxazole/Trimethoprim [Bactrim Ds -] 1 tab PO BID #14 tablet 05/26/19 Benzonatate [Tessalon Pearls -] 100 mg PO Q8H PRN #21 capsule 07/25/19 Ipratropium [place] 2 spray NS BID PRN #1 spray 07/25/19 Methylprednisolone [Medrol Dose [place]] 4 mg PO ASDIR #21 tablet 07/25/19 Montelukast Na [Singulair -] 10 mg PO HS #7 tablet 07/25/19 Asthma: No Cancer: No Cardiac Disorders: No COPD: No Diabetes: No Disorders: Yes HTN: No Kidney Stones: Yes Seizures: No Thyroid Disease: No - Reproductive History (#): 7 Para: 5 Cervical CA: No Dysfunctional Uterine Bleeding: No Ectopic : No Endometrial CA: No Polycystic Ovaries: No Therapeutic (s) & number: Yes (2) Tubal Ligation: No - Psycho Social/Smoking Cessation Hx Smoking Status: Yes Smoking History: Current every day smoker Have you smoked in the past 12 months: Yes Number of Cigarettes Smoked Daily: 10 Information on smoking cessation initiated: No Hx Alcohol Use: Yes Drug/Substance Use Hx: No Substance Use Type: None Hx Substance Use Treatment: No Review of Systems - Review of Systems Able to Perform ROS?: Yes Is the patient limited [place] proficient: No Constitutional: No: Chills, Fever, Malaise HEENTM: Yes: Symptoms Reported, See HPI, Nose Congestion. No: Eye Pain, Blurred Vision, Tearing, Recent change in vision, Double Vision, Cataracts, Ear Pain, Ocular Prothesis, Ear Discharge, Nose Pain, Tinnitus, Nose Bleeding, Hearing Loss, Throat Pain, Throat Swelling, Mouth Pain, Dental Problems, Difficulty Swallowing, Mouth Swelling, Other Respiratory: Yes: Symptoms reported, See HPI, Cough. No: Orthopnea, Shortness of Breath, SOB with Exertion, SOB at Rest, Stridor, Wheezing, Productive cough, Hemoptysis, Other Cardiac (ROS): Yes: Symptoms Reported, See HPI, Chest Pain (midsternal chest pain). No: Edema, Irregular Heart Rate, Lightheadedness, Palpitations, Syncope , Chest Tightness, Other ABD/GI: No: Nausea, Vomiting Musculoskeletal: No: Symptoms Reported Integumentary: No: Symptoms Reported Neurological: No: Symptoms reported, Headache, Dizziness All Other Systems: Reviewed and Negative *Physical Exam - Vital Signs Last Vital Signs Temp Pulse Resp BP Pulse Ox 98.4 F 92 H 18 106/67 97 07/25/19 19:16 07/25/19 19:16 07/25/19 19:16 07/25/19 19:16 07/25/19 19:16 - Physical Exam Comments: 07/25/19 19:31 GENERAL: Well developed, well nourished. Awake and alert. No acute distress. HEENT: Clear bilateral nasal discharge. Normocephalic, atraumatic. PERRLA, EOMI. No conjunctival pallor. Sclera are non-icteric. Moist mucous membranes. Oropharynx is clear. NECK: Supple. Full ROM. CARDIOVASCULAR: Regular rate and rhythm. No murmurs, rubs, or gallops. Distal pulses are 2+ and symmetric. PULMONARY: No evidence of respiratory distress. Lungs clear to auscultation bilaterally. No wheezing, rales or rhonchi. ABDOMINAL: Soft. Non-tender. Non-distended. No rebound or guarding. No organomegaly. Normoactive bowel sounds. MUSCULOSKELETAL Normal range of motion at all joints. EXTREMITIES: No cyanosis. No clubbing. No edema. No calf tenderness. SKIN: Warm and dry. Normal capillary refill. No rashes. No jaundice. NEUROLOGICAL: Alert, awake, appropriate. Gait is normal without ataxia. PSYCHIATRIC: Cooperative. Good eye contact. Appropriate mood General Appearance: Yes: Nourished, Appropriately Dressed. No: Apparent Distress ED Treatment Course - RADIOLOGY Radiology Studies Ordered: Category Date Time Status CHEST PA & LAT [RAD] Stat Radiology 07/25/19 19:28 Ordered Medical Decision Making - Medical Decision Making 07/25/19 19:30 Patient with no significant past medical history presented with complaint of 2- day history of persistent dry cough, nasal congestion, runny nose and midsternal chest pain from coughing. Patient reported he declined a similar episode a week ago and was being treated with steroid and albuterol inhaler and wants to make sure she does not have the same to her claim to have. Patient report 7 cigarettes a day smoking history. Denies fever, chills, nausea, vomiting, body aches. Patient did not take anything for cough. Denies any other symptoms Exam significant for moderate clear bilateral nasal congestion but lungs clear to auscultation bilateral. Patient coughing throughout exam. Normal cardiac exam. Symptoms likely viral URI versus less likely pneumonia. Chest x-ray ordered to rule out pneumonia 07/25/19 19:49 Chest x-ray shows no acute infiltrate pathology. Patient symptoms likely viral URI and stable for outpatient management of Tessalon Perles as needed for cough , Atrovent nasal spray for nasal congestion and Singulair antihistamine for rhinitis with advised to increase fluid intake and follow-up with primary care. Patient stable for discharge Discharge - Discharge Information Problems reviewed: Yes Clinical Impression/Diagnosis: Cough URI (upper respiratory infection) Qualifiers: URI type: unspecified viral URI Qualified Code(s): J06.9 - Acute upper respiratory infection, unspecified Condition: Stable Disposition: HOME - Admission No - Additional Discharge Information Prescriptions: Benzonatate [Tessalon Pearls -] 100 mg PO Q8H PRN #21 capsule PRN Reason: Cough Ipratropium [place] 2 spray NS BID PRN #1 spray PRN Reason: nasal congestion Methylprednisolone [Medrol Dose [place]] 4 mg PO ASDIR #21 tablet Montelukast Na [Singulair -] 10 mg PO HS #7 tablet - Follow up/Referral - Patient Discharge Instructions Patient Printed Discharge Instructions: DI for Viral Upper Respiratory Infection -- Adult Additional Instructions: The chest x-ray was normal and shows no pneumonia or acute infiltrate. Symptoms likely caused by a viral upper respiratory infection. Take prescribed medication as prescribed. Increase fluid intake. Follow-up with primary care - Post Discharge Activity
[2019-07-25] MEDS ORDERED: guaiFENesin/D-METHORPHAN HB 10 ML UNIT-DOSE CUPS ONE (19:44)
[2019-07-25] MEDS ORDERED: guaiFENesin/CODEINE 10 ML UNIT-DOSE CUPS PO ONE (19:44)
== END 2019-07-25 19:48 | disposition home or self-care (01) ==
LOC: JERFT 19:08
DX: J06.9 Acute upper respiratory infection, unspecified (principal); B97.89 Other viral agents as the cause of diseases classified elsewhere; Z87.442 Personal history of urinary calculi
CPT/HCPCS: 71046-TC-FY; 99281-25

== ENCOUNTER 2019-10-31 08:21 | Emergency (ER) | payer OTHER ==
[2019-10-31 08:32] VITALS: BP 126/73; PULSE 66; TEMP 97.9; BMI 27.6
[2019-10-31] MEDS ORDERED: IBUPROFEN 600 MG TABLET (FP) PO ONE ×2 (08:55→08:57)
--- NOTE | 2019-10-31 09:10 | PDOC ---
History of Present Illness - General Chief Complaint: Respiratory Stated Complaint: CHEST PAIN Time Seen by Provider: 10/31/19 08:55 History Source: Patient Exam Limitations: No Limitations - History of Present Illness Initial Comments: 10/31/19 09:05 34-year-old female presents to ED with complaints of cough, myalgia, arthralgia chills, and generalized weakness. Patient states symptoms began 2 days ago and does smoke cigarettes daily. Pt states her significant other with pneumonia last week Is this a multiple visit Asthma Patient?: No Timing/Duration: reports: other Severity: reports: mild Possible Cause: Yes: occasional episodes Modifying Factors: improves with: coughing Associated Symptoms: reports: cough, fever/chills, muscle aches Past History - Travel Traveled outside of the country in the last 30 days: No Close contact w/someone who was outside of country & ill: No - Past Medical History Allergies/Adverse Reactions: Allergies Allergy/AdvReac Type Severity Reaction Status Date / Time No Known Allergies Allergy Verified 10/31/19 08:30 Home Medications: Ambulatory Orders Pnv with Ca,No.71/Iron/FA [ Vitamin Tablet] 1 each PO DAILY #90 tablet 08/19/13 Acetaminophen [Tylenol .Regular Strength -] 650 mg PO Q4H PRN tablet 12/07/17 Ibuprofen [Motrin -] 600 mg PO Q4H PRN #20 tablet 12/07/17 Lidocaine HCl 85 gm TP ASDIR #14 cream..g. 05/26/19 Sulfamethoxazole/Trimethoprim [Bactrim Ds -] 1 tab PO BID #14 tablet 05/26/19 Benzonatate [Tessalon Pearls -] 100 mg PO Q8H PRN #21 capsule 07/25/19 Ipratropium [place] 2 spray NS BID PRN #1 spray 07/25/19 Methylprednisolone [Medrol Dose [place]] 4 mg PO ASDIR #21 tablet 07/25/19 Montelukast Na [Singulair -] 10 mg PO HS #7 tablet 07/25/19 Asthma: No Cancer: No Cardiac Disorders: No COPD: No Diabetes: No Disorders: Yes HTN: No Kidney Stones: Yes Seizures: No Thyroid Disease: No - Reproductive History (#): 7 Para: 5 Cervical CA: No Dysfunctional Uterine Bleeding: No Ectopic : No Endometrial CA: No Polycystic Ovaries: No Therapeutic (s) & number: Yes (2) Tubal Ligation: No - Psycho Social/Smoking Cessation Hx Smoking Status: Yes Smoking History: Current every day smoker Have you smoked in the past 12 months: Yes Number of Cigarettes Smoked Daily: 10 Information on smoking cessation initiated: No Hx Alcohol Use: Yes Drug/Substance Use Hx: No Substance Use Type: None Hx Substance Use Treatment: No Patient Lives Alone: No Lives with/in: spouse/SO Respiratory Specific PMHX - Complaint Specific PMHX Hx Smoking Exposure: Yes (Daily smoker) Review of Systems - Review of Systems Able to Perform ROS?: No Is the patient limited [place] proficient: No Constitutional: Yes: Chills Respiratory: Yes: Cough Cardiac (ROS): No: Symptoms Reported ABD/GI: No: Symptoms Reported : No: Symptoms Reported Musculoskeletal: Yes: Joint Pain, Muscle Pain Integumentary: No: Symptoms Reported Neurological: No: Symptoms reported *Physical Exam - Vital Signs Last Vital Signs Temp Pulse Resp BP Pulse Ox 97.9 F 66 18 126/73 97 10/31/19 08:28 10/31/19 08:28 10/31/19 08:28 10/31/19 08:28 10/31/19 08:28 - Physical Exam General Appearance: Yes: Nourished, Appropriately Dressed. No: Apparent Distress HEENT: positive: TMs Normal, Pharynx Normal. negative: Pale Conjunctivae Neck: positive: Supple Respiratory/Chest: positive: Lungs Clear, Normal Breath Sounds. negative: Respiratory Distress, Accessory Muscle Use Cardiovascular: positive: Regular Rhythm, Regular Rate. negative: Murmur Gastrointestinal/Abdominal: positive: Soft. negative: Tenderness Integumentary: positive: Normal Color, Warm, Moist Neurologic: positive: Motor Strength 5/5 (Ambulatory) ED Treatment Course - RADIOLOGY Radiology Studies Ordered: Category Date Time Status CHEST PA & LAT [RAD] Stat Radiology 10/31/19 08:55 Ordered - Medications Given in the ED: ED Medications Discontinued Medications Generic Name Dose Route Start Last Admin Trade Name Freq PRN Reason Stop Dose Admin Ibuprofen 600 mg 10/31/19 08:55 10/31/19 08:59 Motrin - PO 10/31/19 08:56 600 mg ONCE ONE Administration Medical Decision Making - Medical Decision Making 10/31/19 09:01 Chief complaint: URI symptoms exposed to pneumonia last week by significant other positive daily smoker. Exam: Vital signs stable lungs clear to auscultation Plan: Influenza swab, Motrin and chest x-ray ordered 10/31/19 09:43 Laboratory Tests 10/31/19 08:53 Influenza A (Rapid) Negative Influenza B (Rapid) Negative Will discharge home with azithromycin 3-day for treatment of bronchitis Discharge - Discharge Information Problems reviewed: Yes Clinical Impression/Diagnosis: Bronchitis Condition: Good Disposition: HOME - Follow up/Referral Referrals: Frankie Gamble MD [Primary Care Provider] - - Patient Discharge Instructions Patient Printed Discharge Instructions: DI for Acute Bronchitis Additional Instructions: Take azithromycin as prescribed until completed. Drink plenty of fluids and take Motrin 600 mg Every 8 hours for myalgia and fever body aches and fever - Post Discharge Activity
--- NOTE | 2019-11-01 10:06 | EKG ---
Test Reason : Blood Pressure : / mmHG Vent. Rate : 070 BPM Atrial Rate : 070 BPM P-R Int : 184 ms QRS Dur : 078 ms QT Int : 412 ms P-R-T Axes : 045 065 022 degrees QTc Int : 444 ms NORMAL SINUS RHYTHM NORMAL ECG NO PREVIOUS ECGS AVAILABLE Confirmed by TAMIA KIMBROUGH MD ([id number]) on 11/01/2019 10:05:46 AM Referred By: Confirmed By:TAMIA KIMBROUGH MD
== END 2019-10-31 09:56 | disposition home or self-care (01) ==
LOC: JERFT 08:21 → JER 08:21 → JERFT 09:56
DX: J20.9 Acute bronchitis, unspecified (principal); F17.210 Nicotine dependence, cigarettes, uncomplicated
CPT/HCPCS: 71046-TC-FY; 87804; 93005; 93010; 99282-25

== ENCOUNTER 2020-05-13 12:11 | Emergency (ER) | payer OTHER ==
--- NOTE | 2020-05-13 12:21 | PDOC ---
Rapid Medical Evaluation Chief Complaint: Eye Problem Time Seen by Provider: 05/13/20 12:18 Medical Evaluation: Allergies Allergy/AdvReac Type Severity Reaction Status Date / Time No Known Allergies Allergy Verified 05/13/20 12:16 05/13/20 12:18 I performed a brief in-person evaluation of this patient. Pt is a 35 y/o female who presents to the ED with a L eye "bump" that she has had for the last 1 month. She states she has had chilazion in the past and had surgery on the R eye for similar. She is complaining of visual changes that she noticed this morning. She denies any fevers, chills, drainage. Pertinent physical exam findings: large left lower lid lesion appreciated. EOMI I have ordered the following: none Patient to proceed to ED for further evaluation. Discharge Disposition - Diagnosis Eyelid lesion - Referrals - Patient Instructions - Post Discharge Activity
[2020-05-13 12:22] VITALS: BP 124/76; PULSE 100; TEMP 98.3; BMI 30.8
--- NOTE | 2020-05-13 12:53 | PDOC ---
History of Present Illness - General Chief Complaint: Eye Problem Stated Complaint: EYE PROBLEM Time Seen by Provider: 05/13/20 12:18 History Source: Patient Exam Limitations: No Limitations - History of Present Illness Initial Comments: 05/13/20 12:49 34-year-old female 20 weeks gestation history of chalazion 20 years ago to right upper eyelid presents complaining of "bump" to left lower eyelid for 1 month. The area has grown in size over the past week. Awoke this morning with slight blurry vision to left eye and mild pain behind both eyes. Does not wear corrective lenses or use contacts. Denies pain, drainage from the eye, headache, fever, chills, chest pain, shortness of breath, abdominal pain or any other complaints. Patient was cleared for any minor procedure given she is past her first trimester 2 days ago. Patient went to an urgent care center 3 days ago and was told to follow-up with ophthalmology in the [place]. 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 Presents to the ED today in hopes of having lesion removed. ROS: as above PE: GENERAL: well-appearing, NAD HEAD: NCAT EYES: OS 20/25, OD 20/20, nodular, pea-sized lesion to left lower eyelid without surrounding erythema or warmth, pupils equal, round and reactive to light, sclera anicteric, conjunctiva clear ENT: pharynx: no erythema, no exudate, uvula midline NECK: supple CHEST: nontender RESP: clear, no w/r/r CARDIO: rrr, no m/g/r ABD: +BS, soft, nontender, non distended BACK: no midline spinal ttp, no CVAT EXTREMITIES: Normal range of motion, no edema NEUROLOGICAL: Normal speech, normal gait SKIN: Warm, Dry Is this a multiple visit Asthma Patient?: No Past History - Medical History Allergies/Adverse Reactions: Allergies Allergy/AdvReac Type Severity Reaction Status Date / Time No Known Allergies Allergy Verified 05/13/20 12:16 Home Medications: Ambulatory Orders Pnv with Ca,No.71/Iron/FA [ Vitamin Tablet] 1 each PO DAILY #90 tablet 08/19/13 Acetaminophen [Tylenol .Regular Strength -] 650 mg PO Q4H PRN tablet 12/07/17 Ibuprofen [Motrin -] 600 mg PO Q4H PRN #20 tablet 12/07/17 Lidocaine HCl 85 gm TP ASDIR #14 cream..g. 05/26/19 Sulfamethoxazole/Trimethoprim [Bactrim Ds -] 1 tab PO BID #14 tablet 05/26/19 Benzonatate [Tessalon Pearls -] 100 mg PO Q8H PRN #21 capsule 07/25/19 Ipratropium [place] 2 spray NS BID PRN #1 spray 07/25/19 Methylprednisolone [Medrol Dose Prince] 4 mg PO ASDIR #21 tablet 07/25/19 Montelukast Na [Singulair -] 10 mg PO HS #7 tablet 07/25/19 Azithromycin [Zithromax Tri-Prince (3 DAYS) -] 500 mg PO DAILY #3 tablet 10/31/19 Cephalexin Monohydrate [Keflex -] 500 mg PO BID #20 capsule 03/12/20 Asthma: No Cancer: No Cardiac Disorders: No COPD: No Diabetes: No Disorders: Yes HTN: No Kidney Stones: Yes Seizures: No Thyroid Disease: No - Reproductive History (#): 7 Para: 5 Cervical CA: No Dysfunctional Uterine Bleeding: No Ectopic : No Endometrial CA: No Polycystic Ovaries: No Therapeutic (s) & number: Yes (2) Tubal Ligation: No - Psycho-Social/Smoking History Smoking Status: Yes Smoking History: Current every day smoker Have you smoked in the past 12 months: Yes Number of Cigarettes Smoked Daily: 5 Information on smoking cessation initiated: Yes - Substance Abuse Hx (Audit-C & DAST Scrn) How often the patient has a drink containing alcohol: Never Score: In Men: 4 or > Positive; In Women: 3 or > Positive: 0 Screen Result (Pos requires Nsg. Audit-10AR): Negative In the last yr the pt used illegal drug/Rx for NonMed reason: No Score: Yes response is considered Positive: 0 Screen Result (Positive result requires Nsg. DAST-10): Negative *Physical Exam - Vital Signs Last Vital Signs Temp Pulse Resp BP Pulse Ox 98.3 F 100 H 18 124/76 97 05/13/20 12:16 05/13/20 12:16 05/13/20 12:16 05/13/20 12:16 05/13/20 12:16 Medical Decision Making - Medical Decision Making 05/13/20 12:55 34-year-old female 20 weeks gestation history of chalazion 20 years ago to right upper eyelid presents complaining of "bump" to left lower eyelid for 1 month. The area has grown in size over the past week. Awoke this morning with slight blurry vision to left eye and mild pain behind both eyes. Does not wear corrective lenses or use contacts. Denies pain, drainage from the eye, headache, fever, chills, chest pain, shortness of breath, abdominal pain or any other complaints. Patient was cleared for any minor procedure given she is past her first trimester 2 days ago. Patient went to an urgent care center 3 days ago and was told to follow-up with ophthalmology in the [place]. 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 Presents to the ED today in hopes of having lesion removed. Patient is neurologically intact Referral for ophthalmology Apply warm compresses to area And information for [facility] Note for work given Return precautions discussed 05/13/20 12:56 Discharge - Discharge Information Problems reviewed: Yes Clinical Impression/Diagnosis: Eyelid lesion Condition: Stable Disposition: HOME - Admission No - Follow up/Referral Referrals: Frankie aGmble MD [Primary Care Provider] - Dilshad Antoine MD [Staff Physician] - - Patient Discharge Instructions Additional Instructions: Call [facility] at [phone] address: [address] [place] [address] Apply warm compresses to area Return to the ER if you develop fever, pain, swelling, or any other concern - Post Discharge Activity Work/Back to School Note: Back to Work
== END 2020-05-13 13:12 | disposition home or self-care (01) ==
LOC: JER 12:11
DX: H02.9 Unspecified disorder of eyelid (principal)
CPT/HCPCS: 99283-25

== ENCOUNTER 2020-10-04 08:20 | Inpatient (IN) | payer OTHER ==
[2020-10-04] MEDS ORDERED: CITRIC ACID/SODIUM CITRATE 30 ML UNIT-DOSE CUP PO ONE (09:29)
[2020-10-04] MEDS ORDERED: ELECTROLYTE-148 SOLN 1,000 ML IV SCH (09:30)
[2020-10-04] MEDS ORDERED: IBUPROFEN 800 MG/8 ML IJ IVPB PRN (09:58)
[2020-10-04] MEDS ORDERED: OXYTOCIN 20 UNITS in 0.9% NS 20 UNIT/1,000 ML INFUS.BAG IV SCH (10:00)
[2020-10-04] MEDS ORDERED: MIDAZOLAM HCL 2 MG/2 ML SINGLE DOSE VIAL ONE (10:15)
[2020-10-04] MEDS ORDERED: ONDANSETRON 4 MG/2 ML VIAL ONE (10:15)
[2020-10-04] MEDS ORDERED: OXYTOCIN 10 UNITS/ML VIAL ONE (10:15)
[2020-10-04] MEDS ORDERED: morphine SULFATE/PF 1 MG/2 ML (2cc Syringe - QUVA) ONE (10:15)
[2020-10-04 10:33] VITALS: BMI 31.1
[2020-10-04] MEDS ORDERED: LIGASURE IMPACT TP ONE (10:59)
[2020-10-04] MEDS ORDERED: KETAMINE HCL 500 MG/10 ML VIAL ONE (11:26)
[2020-10-04] MEDS ORDERED: ONDANSETRON 4 MG/2 ML VIAL IVPUSH PRN (12:09)
[2020-10-04] MEDS ORDERED: ACETAMINOPHEN 1000 MG/100 ML BAG IVPB ONE (12:10)
[2020-10-04] MEDS: SIMETHICONE 80 MG TAB.CHEW (FP) PO PRN (22:49)
[2020-10-04] MEDS: IBUPROFEN 800 MG/8 ML IJ IVPB PRN (22:49)
[2020-10-05] MEDS: IBUPROFEN 800 MG/8 ML IJ IVPB PRN (06:43)
[2020-10-05 08:13] LABS: BASO % 0.2 % (0-2.0); HEMOGLOBIN 10.4 GM/dL (10.7-15.3); LYMPH % 7.4 % (8-40); MCHC 32.4 g/dl (32.0-36.0); MEAN CELL VOLUME 83.3 fl (80-96); MEAN PLT VOLUME 8.8 fl (7.5-11.1); MONO % 6.1 % (3.8-10.2); NEUT % 85.3 % (42.8-82.8); PLATELET COUNT 221 K/MM3 (134-434); RBC 3.85 M/mm3 (3.60-5.2); RDW 14.8 % (11.6-15.6)
[2020-10-05] MEDS ORDERED: BISACODYL 10 MG SUPP.RECT RC PRN (09:58)
[2020-10-05] MEDS: oxyCODONE HCL 5 MG TABLET PO PRN ×3 (12:14→21:15)
[2020-10-05] MEDS: IBUPROFEN 600 MG TABLET (FP) PO PRN ×2 (12:14→16:32)
[2020-10-05] MEDS: SIMETHICONE 80 MG TAB.CHEW (FP) PO PRN ×3 (12:15→21:16)
[2020-10-05] MEDS: ACETAMINOPHEN 325 MG TABLET (FP) PO PRN (21:15)
[2020-10-06] MEDS: oxyCODONE HCL 5 MG TABLET PO PRN ×2 (03:48→09:43)
[2020-10-06] MEDS: ACETAMINOPHEN 325 MG TABLET (FP) PO PRN (03:49)
[2020-10-06] MEDS: SIMETHICONE 80 MG TAB.CHEW (FP) PO PRN ×2 (03:49→09:43)
[2020-10-06 09:01] VITALS: BP 129/85; PULSE 90; TEMP 98.1
[2020-10-06] MEDS: IBUPROFEN 600 MG TABLET (FP) PO PRN (09:43)
== END 2020-10-06 11:20 | disposition home or self-care (01) | DRG 540 ==
LOC: JLDR 08:20 → J3W 14:00
PROVIDERS: ADMIT Student in an Organized Health Care Education/Training Program; ATTEND Student in an Organized Health Care Education/Training Program
PROC: 10D00Z1 Extraction of Products of Conception, Low, Open Approach (ICD-10-PCS; principal; 2020-10-04)
PROC: 0UB70ZZ Excision of Bilateral Fallopian Tubes, Open Approach (ICD-10-PCS; 2020-10-04)
DX: O34.211 Maternal care for low transverse scar from previous cesarean delivery (principal); N85.8 Other specified noninflammatory disorders of uterus; O24.429 Gestational diabetes mellitus in childbirth, unspecified control; Z3A.39 39 weeks gestation of pregnancy; Z30.2 Encounter for sterilization; Z37.0 Single live birth
CPT/HCPCS: 36415; 80053; 81003; 85025; 85610; 86780; 86850; 86900; 86901; 88302-TC; 88307-TC; C9803; J0131; U0003

== ENCOUNTER 2021-04-28 23:29 | Inpatient (IN) | payer OTHER ==
[2021-04-29 01:46] LABS: EPI CELLS 5 /uL (0-25.1); HYALINE CASTS 4 /uL (0-3.1); PH,URINE 6.5 (5.0-8.0); URINE APPEARANCE CLEAR; URINE BACTERIA 110 /uL (0-1359); URINE BILIRUBIN NEGATIVE (NEGATIVE); URINE COLOR YELLOW; URINE GLUCOSE (UA) NEGATIVE (NEGATIVE); URINE KETONE NEGATIVE (NEGATIVE); URINE LEUK ESTERASE 2+ (NEGATIVE); URINE NITRITE NEGATIVE (NEGATIVE); URINE PROTEIN NEGATIVE (NEGATIVE); URINE WBC 220 /uL (0-25.8)
[2021-04-29] MEDS ORDERED: SODIUM CHLORIDE 0.9% 500 ML INFUS.BAG IV ONE (01:47)
[2021-04-29] MEDS ORDERED: morphine CARPU-JECT 2 MG/1 ML DISP.SYRIN IVPUSH ONE (01:48)
[2021-04-29] MEDS ORDERED: MORPHINE SULFATE 2 MG/ML VIAL ONE (02:00)
[2021-04-29 02:14] LABS: URINE RBC 83.7 /uL (0-23.9)
[2021-04-29 02:38] LABS: BASO % 0.5 % (0-2.0); EOS % 0.3 % (0-4.5); HEMATOCRIT 40.4 % (32.4-45.2); HEMOGLOBIN 13.5 GM/dL (10.7-15.3); LYMPH % 9.6 % (8-40); MCH 28.6 pg (25.7-33.7); MCHC 33.5 g/dl (32.0-36.0); MEAN CELL VOLUME 85.3 fl (80-96); MEAN PLT VOLUME 8.1 fl (7.5-11.1); MONO % 3.3 % (3.8-10.2); NEUT % 86.3 % (42.8-82.8); PLATELET COUNT 328 10^3/uL (134-434); RBC 4.73 M/mm3 (3.60-5.2); RDW 13.5 % (11.6-15.6); WHITE BLOOD COUNT 10.2 K/mm3 (4.0-10.0)
[2021-04-29 02:58] LABS: ALBUMIN 4.2 g/dl (3.4-5.0); CALCIUM 8.9 mg/dL (8.5-10.1)
[2021-04-29 02:59] LABS: BLOOD UREA NITROGEN 7.9 mg/dL (7-18)
[2021-04-29 03:02] LABS: CREATININE 0.8 mg/dL (0.55-1.3)
[2021-04-29 03:03] LABS: BILIRUBIN,TOTAL 0.2 mg/dL (0.2-1); TOT PROT 7.9 g/dl (6.4-8.2)
[2021-04-29] MEDS ORDERED: CEFTRIAXONE 1,000 MG in DEXTROSE 5%-WATER - 50 ML IVPB ONE (04:13)
[2021-04-29] MEDS ORDERED: CEFTRIAXONE 1 GM/50 ML BAG ONE ×2 (05:25→09:26)
[2021-04-29] MEDS ORDERED: ACETAMINOPHEN 325 MG TABLET (FP) PO PRN (05:36)
[2021-04-29] MEDS ORDERED: MORPHINE SULFATE 2 MG/ML VIAL IVPUSH PRN (06:07)
[2021-04-29] MEDS ORDERED: KETOROLAC TROMETHAMINE 15 MG/ML VIAL ONE (06:21)
[2021-04-29] MEDS: SODIUM CHLORIDE 1,000 ML IV SCH (06:30)
[2021-04-29] MEDS: KETOROLAC TROMETHAMINE 15 MG/ML VIAL IVPUSH PRN ×3 (06:47→23:20)
[2021-04-29] MEDS ORDERED: ENOXAPARIN NA (PORCINE) 40 MG/0.4 ML DISP.SYRIN SQ ONE (09:26)
[2021-04-29] MEDS: CEFTRIAXONE 1 GM in DEXTROSE 5%-WATER - 50 ML IVPB SCH (09:39)
[2021-04-29] MEDS: ENOXAPARIN NA (PORCINE) 40 MG/0.4 ML DISP.SYRIN SQ SCH (09:39)
[2021-04-29 10:32] VITALS: BMI 27.3
[2021-04-29 11:16] LABS: BASO % 0.7 % (0-2.0); EOS % 2.1 % (0-4.5); HEMATOCRIT 36.1 % (32.4-45.2); HEMOGLOBIN 11.9 GM/dL (10.7-15.3); LYMPH % 36.2 % (8-40); MCH 28.6 pg (25.7-33.7); MCHC 33.1 g/dl (32.0-36.0); MEAN CELL VOLUME 86.5 fl (80-96); MEAN PLT VOLUME 8.5 fl (7.5-11.1); MONO % 5.5 % (3.8-10.2); NEUT % 55.5 % (42.8-82.8); PLATELET COUNT 267 10^3/uL (134-434); RBC 4.17 M/mm3 (3.60-5.2); RDW 13.5 % (11.6-15.6); WHITE BLOOD COUNT 7.2 K/mm3 (4.0-10.0)
[2021-04-29 11:37] LABS: BLOOD UREA NITROGEN 7.3 mg/dL (7-18); CALCIUM 7.9 mg/dL (8.5-10.1)
[2021-04-29 11:41] LABS: CREATININE 0.6 mg/dL (0.55-1.3)
[2021-04-29 11:42] LABS: BILIRUBIN,TOTAL 0.3 mg/dL (0.2-1)
[2021-04-29 11:49] LABS: ALBUMIN 3.2 g/dl (3.4-5.0)
[2021-04-29] MEDS ORDERED: MELATONIN 5 MG TABLETS PO ONE (22:11)
[2021-04-30] MEDS ORDERED: ONDANSETRON 4 MG/2 ML VIAL IVPUSH PRN ×4 (05:58→15:52)
[2021-04-30 08:37] LABS: HEMATOCRIT 34.1 % (32.4-45.2); HEMOGLOBIN 11.3 GM/dL (10.7-15.3); MCH 28.7 pg (25.7-33.7); MCHC 33.2 g/dl (32.0-36.0); MEAN CELL VOLUME 86.3 fl (80-96); MEAN PLT VOLUME 8.5 fl (7.5-11.1); PLATELET COUNT 233 10^3/uL (134-434); RBC 3.96 M/mm3 (3.60-5.2); RDW 13.4 % (11.6-15.6); WHITE BLOOD COUNT 5.4 K/mm3 (4.0-10.0)
[2021-04-30 09:04] LABS: CALCIUM 8.2 mg/dL (8.5-10.1)
[2021-04-30 09:05] LABS: BLOOD UREA NITROGEN 4.5 mg/dL (7-18)
[2021-04-30 09:08] LABS: CREATININE 0.6 mg/dL (0.55-1.3)
[2021-04-30] MEDS ORDERED: cefTRIAXone SODIUM 1 GM VIAL ONE (09:13)
[2021-04-30] MEDS ORDERED: DEXTROSE 5%-WATER - 50 ML IVPB ONE (09:14)
[2021-04-30] MEDS: ENOXAPARIN NA (PORCINE) 40 MG/0.4 ML DISP.SYRIN SQ SCH (09:19)
[2021-04-30] MEDS: KETOROLAC TROMETHAMINE 15 MG/ML VIAL IVPUSH PRN ×2 (09:20→17:51)
[2021-04-30] MEDS: SODIUM CHLORIDE 1,000 ML IV SCH (10:07)
[2021-04-30] MEDS: CEFTRIAXONE 1 GM in DEXTROSE 5%-WATER - 50 ML IVPB SCH (10:07)
[2021-04-30] MEDS ORDERED: MIDAZOLAM HCL 2 MG/2 ML SINGLE DOSE VIAL ONE ×2 (12:23→14:17)
[2021-04-30] MEDS ORDERED: PROPOFOL 20 ML ONE ×2 (12:23→14:51)
[2021-04-30] MEDS ORDERED: IOHEXOL 300 MG/ML INFUS..BTL IJ ONE (12:39)
[2021-04-30] MEDS ORDERED: PROMETHAZINE HCL 25 MG/1 ML VIAL IVPUSH PRN ×2 (13:11→15:52)
[2021-04-30] MEDS ORDERED: ceFAZolin SODIUM 1 GM VIAL IVPB ONE (14:36)
[2021-04-30] MEDS ORDERED: SODIUM CHLORIDE 1,000 ML IV SCH (15:52)
[2021-04-30] MEDS ORDERED: ACETAMINOPHEN 325 MG TABLET (FP) PO PRN (15:52)
[2021-04-30] MEDS: MORPHINE SULFATE 2 MG/ML VIAL IVPUSH PRN (20:17)
[2021-05-01] MEDS: KETOROLAC TROMETHAMINE 15 MG/ML VIAL IVPUSH PRN ×2 (01:22→08:00)
[2021-05-01 08:51] LABS: BASO % 1.2 % (0-2.0); EOS % 0.6 % (0-4.5); HEMATOCRIT 37.6 % (32.4-45.2); HEMOGLOBIN 12.4 GM/dL (10.7-15.3); LYMPH % 14.2 % (8-40); MCH 28.5 pg (25.7-33.7); MEAN CELL VOLUME 86.4 fl (80-96); MONO % 4.5 % (3.8-10.2); NEUT % 79.5 % (42.8-82.8); PLATELET COUNT 282 10^3/uL (134-434); RBC 4.35 M/mm3 (3.60-5.2); RDW 13.4 % (11.6-15.6); WHITE BLOOD COUNT 9.3 K/mm3 (4.0-10.0)
[2021-05-01 09:17] LABS: BLOOD UREA NITROGEN 5.2 mg/dL (7-18); CALCIUM 8.5 mg/dL (8.5-10.1)
[2021-05-01 09:18] LABS: ALBUMIN 3.4 g/dl (3.4-5.0); MAGNESIUM 2.3 mg/dL (1.8-2.4)
[2021-05-01 09:20] LABS: CREATININE 0.7 mg/dL (0.55-1.3); PHOSPHOROUS 3.1 mg/dL (2.5-4.9)
[2021-05-01 09:21] LABS: BILIRUBIN,TOTAL 0.2 mg/dL (0.2-1); TOT PROT 6.5 g/dl (6.4-8.2)
[2021-05-01] MEDS ORDERED: DEXTROSE 5%-WATER - 50 ML IVPB ONE (09:24)
[2021-05-01] MEDS ORDERED: cefTRIAXone SODIUM 1 GM VIAL ONE (09:24)
[2021-05-01] MEDS ORDERED: QUEtiapine FUMARATE 100 MG TABLET (FP) PO SCH (10:00)
[2021-05-01] MEDS ORDERED: ENOXAPARIN NA (PORCINE) 40 MG/0.4 ML DISP.SYRIN SQ SCH (10:00)
[2021-05-01] MEDS ORDERED: CEFTRIAXONE 1 GM in DEXTROSE 5%-WATER - 50 ML IVPB SCH (10:00)
[2021-05-01] MEDS: MORPHINE SULFATE 2 MG/ML VIAL IVPUSH PRN (12:15)
[2021-05-01 14:31] VITALS: BP 137/88; PULSE 56; TEMP 98.8
== END 2021-05-01 17:39 | disposition home or self-care (01) | DRG 465 ==
LOC: JER 23:29 → JERBED 04-29 05:31 → J6S 04-29 09:49
PROVIDERS: ADMIT Internal Medicine; ATTEND Internal Medicine
PROC: 0TJB8ZZ Inspection of Bladder, Via Natural or Artificial Opening Endoscopic (ICD-10-PCS; principal; 2021-04-30 14:30)
PROC: 0T778DZ Dilation of Left Ureter with Intraluminal Device, Via Natural or Artificial Opening Endoscopic (ICD-10-PCS; 2021-04-30 14:30)
PROC: BT1FZZZ Fluoroscopy of Left Kidney, Ureter and Bladder (ICD-10-PCS; 2021-04-30 14:30)
DX: N20.1 Calculus of ureter (principal); F31.9 Bipolar disorder, unspecified; D72.829 Elevated white blood cell count, unspecified; N39.0 Urinary tract infection, site not specified
CPT/HCPCS: 36415; 74018-TC-FY; 74176-TC; 76000-TC-FY; 80048; 80053; 81003; 83735; 84100; 84703; 85025; 85027; 94760; 99285-25; C9803; U0003; U0005

== ENCOUNTER 2021-06-26 09:46 | Emergency (ER) | payer OTHER ==
[2021-06-26 09:57] VITALS: BP 121/84; PULSE 79; TEMP 98.3; BMI 27.0
[2021-06-26] MEDS ORDERED: KETOROLAC TROMETHAMINE 60 MG/2 ML VIAL IM ONE (10:42)
[2021-06-26] MEDS ORDERED: KETOROLAC TROMETHAMINE 60 MG/2 ML VIAL ONE (10:46)
== END 2021-06-26 11:07 | disposition home or self-care (01) ==
LOC: JERFT 09:46
PROC: 3E0234Z Introduction of Serum, Toxoid and Vaccine into Muscle, Percutaneous Approach (ICD-10-PCS; principal; 2021-06-26)
DX: K08.89 Other specified disorders of teeth and supporting structures (principal); K02.9 Dental caries, unspecified
CPT/HCPCS: 99284-25

== ENCOUNTER 2021-08-17 23:28 | Inpatient (IN) | payer OTHER ==
[2021-08-18] MEDS ORDERED: morphine CARPU-JECT 4 MG/1 ML DISP.SYRIN IVPUSH ONE (00:46)
[2021-08-18] MEDS ORDERED: ONDANSETRON 4 MG/2 ML VIAL IVPUSH ONE (00:46)
[2021-08-18] MEDS ORDERED: morphine SULFATE 4 MG/ML VIAL ONE (00:54)
[2021-08-18] MEDS ORDERED: ONDANSETRON 4 MG/2 ML VIAL ONE (00:55)
[2021-08-18 01:09] LABS: BASO % 0.9 % (0-2.0); EOS % 3.2 % (0-4.5); HEMATOCRIT 40.6 % (32.4-45.2); HEMOGLOBIN 13.6 GM/dL (10.7-15.3); LYMPH % 14.5 % (8-40); MCH 29.4 pg (25.7-33.7); MCHC 33.6 g/dl (32.0-36.0); MEAN CELL VOLUME 87.5 fl (80-96); MEAN PLT VOLUME 7.9 fl (7.5-11.1); MONO % 6.2 % (3.8-10.2); NEUT % 75.2 % (42.8-82.8); PLATELET COUNT 336 10^3/uL (134-434); RBC 4.64 M/mm3 (3.60-5.2); RDW 14.1 % (11.6-15.6); WHITE BLOOD COUNT 11.4 K/mm3 (4.0-10.0)
[2021-08-18 01:18] LABS: INR 1.03 (0.83-1.09)
[2021-08-18 01:21] LABS: ACTIVATED PTT 29.8 SECONDS (25.2-36.5)
[2021-08-18 01:30] LABS: ALBUMIN 3.8 g/dl (3.4-5.0); CALCIUM 8.9 mg/dL (8.5-10.1)
[2021-08-18 01:34] LABS: CREATININE 0.8 mg/dL (0.55-1.3)
[2021-08-18 01:36] LABS: BILIRUBIN,TOTAL 0.7 mg/dL (0.2-1); TOT PROT 8.2 g/dl (6.4-8.2)
[2021-08-18 02:35] LABS: EPI CELLS 32 /uL (0-25.1); HYALINE CASTS 2 /uL (0-3.1); URINE APPEARANCE CLEAR; URINE BACTERIA 68 /uL (0-1359); URINE BILIRUBIN NEGATIVE (NEGATIVE); URINE COLOR DK YELLOW; URINE GLUCOSE (UA) NEGATIVE (NEGATIVE); URINE KETONE TRACE (NEGATIVE); URINE LEUK ESTERASE NEGATIVE (NEGATIVE); URINE NITRITE NEGATIVE (NEGATIVE); URINE PROTEIN NEGATIVE (NEGATIVE); URINE RBC 7 /uL (0-23.9); URINE WBC 18 /uL (0-25.8)
[2021-08-18 06:57] LABS: CALCIUM 8.4 mg/dL (8.5-10.1)
[2021-08-18 06:59] LABS: ALBUMIN 3.5 g/dl (3.4-5.0); BLOOD UREA NITROGEN 8.3 mg/dL (7-18)
[2021-08-18 07:01] LABS: CREATININE 0.6 mg/dL (0.55-1.3)
[2021-08-18 07:03] LABS: BILIRUBIN,TOTAL 0.3 mg/dL (0.2-1); TOT PROT 7.2 g/dl (6.4-8.2)
[2021-08-18] MEDS ORDERED: LACTATED RINGERS SOLUTION 1000 ML INFUS.BAG IV ONE (07:18)
[2021-08-18] MEDS ORDERED: PIPERACILLIN/TAZOB 3.375 GM 3.375 GM in DEXTROSE 5%-WATER - 50 ML IVPB ONE (09:12)
[2021-08-18] MEDS ORDERED: PIPERACILLIN/TAZOB 3.375 GM 3.375 GM/50 ML BAG IVPB ONE (12:17)
[2021-08-18] MEDS ORDERED: morphine SULFATE 4 MG/ML VIAL IVPUSH PRN (12:41)
[2021-08-18 14:25] VITALS: BMI 28.0
[2021-08-18] MEDS: LACTATED RINGERS SOLUTION 1,000 ML/1,000 ML INFUS.BAG IV SCH (15:31)
[2021-08-18] MEDS ORDERED: DEXTROSE 5%-WATER - 50 ML IVPB ONE (17:11)
[2021-08-18] MEDS ORDERED: cefTRIAXone SODIUM 1 GM VIAL ONE (17:11)
[2021-08-18] MEDS: CEFTRIAXONE 1 GM in DEXTROSE 5%-WATER - 50 ML IVPB SCH (17:19)
[2021-08-18] MEDS: HEPARIN NA (PORCINE) 5,000 UNITS/ML 1ML VIAL SQ SCH (21:22)
[2021-08-19] MEDS: LACTATED RINGERS SOLUTION 1,000 ML/1,000 ML INFUS.BAG IV SCH ×2 (02:29→17:18)
[2021-08-19] MEDS ORDERED: DEXTROSE 5%-WATER - 50 ML IVPB ONE (09:40)
[2021-08-19] MEDS ORDERED: cefTRIAXone SODIUM 1 GM VIAL ONE (09:40)
[2021-08-19] MEDS: HEPARIN NA (PORCINE) 5,000 UNITS/ML 1ML VIAL SQ SCH (09:45)
[2021-08-19] MEDS: CEFTRIAXONE 1 GM in DEXTROSE 5%-WATER - 50 ML IVPB SCH (09:47)
[2021-08-19 10:05] LABS: BASO % 0.7 % (0-2.0); EOS % 8.5 % (0-4.5); HEMOGLOBIN 11.8 GM/dL (10.7-15.3); MCH 29.7 pg (25.7-33.7); MCHC 33.8 g/dl (32.0-36.0); MONO % 4.3 % (3.8-10.2); NEUT % 47.5 % (42.8-82.8); PLATELET COUNT 267 10^3/uL (134-434); RBC 3.97 M/mm3 (3.60-5.2); RDW 13.8 % (11.6-15.6); WHITE BLOOD COUNT 5.9 K/mm3 (4.0-10.0)
[2021-08-19 10:17] LABS: CHLORIDE 107 mmol/L (98-107); SODIUM 139 mmol/L (136-145)
[2021-08-19 10:19] LABS: ANION GAP 4 MMOL/L (8-16); CALCIUM 8.9 mg/dL (8.5-10.1); CO2 28 mmol/L (21-32)
[2021-08-19 10:20] LABS: ALBUMIN 3.1 g/dl (3.4-5.0); BLOOD UREA NITROGEN 5.7 mg/dL (7-18); GLUCOSE,RANDOM 127 mg/dL (74-106); LIPASE 43 U/L (73-393)
[2021-08-19 10:21] LABS: AMYLASE 47 U/L (25-115)
[2021-08-19 10:22] LABS: CREATININE 0.7 mg/dL (0.55-1.3); SGOT/AST 70 U/L (15-37)
[2021-08-19 10:23] LABS: BILIRUBIN,DIRECT 0.1 mg/dL (0.0-0.2); SGPT/ALT 248 U/L (13-61)
[2021-08-19 10:24] LABS: TOT PROT 6.2 g/dl (6.4-8.2)
[2021-08-19 10:25] LABS: BILIRUBIN,TOTAL 0.3 mg/dL (0.2-1)
[2021-08-19 10:31] LABS: ALK PHOS 138 U/L (45-117)
[2021-08-19] MEDS ORDERED: HEPARIN NA (PORCINE) 5,000 UNITS/ML 1ML VIAL SQ SCH (16:46)
[2021-08-20] MEDS: LACTATED RINGERS SOLUTION 1,000 ML/1,000 ML INFUS.BAG IV SCH (05:55)
[2021-08-20 09:16] LABS: BASO % 1.1 % (0-2.0); EOS % 5.5 % (0-4.5); HEMATOCRIT 35.2 % (32.4-45.2); HEMOGLOBIN 12.2 GM/dL (10.7-15.3); LYMPH % 38.3 % (8-40); MCH 29.8 pg (25.7-33.7); MCHC 34.6 g/dl (32.0-36.0); MEAN CELL VOLUME 86.2 fl (80-96); MEAN PLT VOLUME 7.8 fl (7.5-11.1); MONO % 4.5 % (3.8-10.2); NEUT % 50.6 % (42.8-82.8); PLATELET COUNT 271 10^3/uL (134-434); RBC 4.08 M/mm3 (3.60-5.2); RDW 13.8 % (11.6-15.6)
[2021-08-20] MEDS ORDERED: DEXTROSE 5%-WATER - 50 ML IVPB ONE (09:38)
[2021-08-20] MEDS ORDERED: cefTRIAXone SODIUM 1 GM VIAL ONE (09:38)
[2021-08-20] MEDS: CEFTRIAXONE 1 GM in DEXTROSE 5%-WATER - 50 ML IVPB SCH (09:49)
[2021-08-20 09:55] LABS: ALBUMIN 3.4 g/dl (3.4-5.0)
[2021-08-20 09:57] LABS: BILIRUBIN,DIRECT 0.1 mg/dL (0.0-0.2)
[2021-08-20 09:58] LABS: BILIRUBIN,TOTAL 0.3 mg/dL (0.2-1)
[2021-08-20 09:59] LABS: TOT PROT 6.9 g/dl (6.4-8.2)
[2021-08-20] MEDS ORDERED: BUPIVACAINE HCL/PF 0.5% (5MG/ML) 10 ML VIAL ONE (10:14)
[2021-08-20] MEDS ORDERED: ONDANSETRON 4 MG/2 ML VIAL IVPUSH PRN ×2 (10:16→13:06)
[2021-08-20] MEDS ORDERED: PROMETHAZINE HCL 25 MG/1 ML VIAL IVPUSH PRN ×2 (10:16→13:06)
[2021-08-20] MEDS ORDERED: PROPOFOL 20 ML ONE ×2 (10:21→11:34)
[2021-08-20] MEDS ORDERED: ROCURONIUM BROMIDE 50 MG/5 ML SYRINGE ONE ×2 (10:22)
[2021-08-20] MEDS ORDERED: MIDAZOLAM HCL 2 MG/2 ML SINGLE DOSE VIAL ONE (10:22)
[2021-08-20] MEDS ORDERED: GLYCOPYRROLATE 0.2 MG/1 ML VIAL ONE ×2 (10:22→11:47)
[2021-08-20] MEDS ORDERED: LACTATED RINGERS SOLUTION 1,000 ML IV SCH ×2 (10:30→13:06)
[2021-08-20] MEDS ORDERED: LIDOCAINE HCL/PF 2% SDV 5ML VIAL ONE (11:19)
[2021-08-20] MEDS ORDERED: DEXAMETHASONE SOD PHOSPHATE 4 MG/1 ML VIAL ONE (11:19)
[2021-08-20] MEDS ORDERED: KETOROLAC TROMETHAMINE 30 MG/1 ML VIAL ONE (11:34)
[2021-08-20] MEDS ORDERED: METOPROLOL TARTRATE 5 MG/5 ML VIAL ONE (11:37)
[2021-08-20] MEDS ORDERED: NEOSTIGMINE METHYLSULFATE 0.5 MG/ML - 10 ML MDV ONE (11:47)
[2021-08-20] MEDS ORDERED: BUPIVACAINE HCL/PF 0.5% (5MG/ML) 10 ML VIAL IJ ONE ×2 (11:49)
[2021-08-20] MEDS ORDERED: oxyCODONE HCL 5 MG TABLET PO PRN ×2 (12:26→12:28)
[2021-08-20 12:52] LABS: BLOOD UREA NITROGEN 5.7 mg/dL (7-18)
[2021-08-20 12:53] LABS: MAGNESIUM 2.3 mg/dL (1.8-2.4)
[2021-08-20 12:56] LABS: CREATININE 0.7 mg/dL (0.55-1.3); PHOSPHOROUS 3.8 mg/dL (2.5-4.9)
[2021-08-20] MEDS ORDERED: LACTATED RINGERS SOLUTION 1,000 ML/1,000 ML INFUS.BAG IV SCH (13:06)
[2021-08-20 15:17] VITALS: BP 111/60; PULSE 74; TEMP 98.4
== END 2021-08-20 18:55 | disposition home or self-care (01) | DRG 263 ==
LOC: JER 23:28 → JERBED 08-18 09:16 → J6S 08-18 13:48
PROVIDERS: ADMIT Internal Medicine; ATTEND Internal Medicine
PROC: 0FT44ZZ Resection of Gallbladder, Percutaneous Endoscopic Approach (ICD-10-PCS; principal; 2021-08-20 12:00)
DX: K80.00 Calculus of gallbladder with acute cholecystitis without obstruction (principal); R94.5 Abnormal results of liver function studies; R31.29 Other microscopic hematuria; N20.0 Calculus of kidney; K82.8 Other specified diseases of gallbladder
CPT/HCPCS: 36415; 74176-TC; 74181-TC; 76705-TC; 80053; 80076; 80307; 81003; 82150; 83690; 83735; 84100; 84703; 85025; 85610; 85730; 86140; 86850; 86900; 86901; 87086; 88304-TC; 93005; 93010; 94760; 99285-25; C9803; J1644; U0003; U0005

== ENCOUNTER 2021-10-22 04:17 | Day surgery (SDC) | payer OTHER ==
[2021-10-17 17:06] VITALS: BMI 23.9
[2021-10-22] MEDS ORDERED: MIDAZOLAM HCL 2 MG/2 ML SINGLE DOSE VIAL ONE ×3 (08:47)
[2021-10-22 11:02] VITALS: BP 101/69; PULSE 65; TEMP 97.9
== END 2021-10-22 10:35 | disposition home or self-care (01) ==
LOC: JASU-SURG 04:17
PROVIDERS: ATTEND Urology
PROC: 0TF3XZZ Fragmentation in Right Kidney Pelvis, External Approach (ICD-10-PCS; principal; 2021-10-22 08:00)
DX: N20.0 Calculus of kidney (principal)
CPT/HCPCS: 81025

== ENCOUNTER 2022-05-27 20:54 | Inpatient (IN) | payer OTHER ==
[2022-05-27] MEDS ORDERED: morphine CARPU-JECT 2 MG/1 ML DISP.SYRIN IVPUSH ONE (22:28)
[2022-05-27] MEDS ORDERED: ONDANSETRON 4 MG/2 ML VIAL IVPUSH ONE (22:54)
[2022-05-27] MEDS ORDERED: SODIUM CHLORIDE 0.9% 500 ML INFUS.BAG IV ONE ×2 (22:55→22:56)
[2022-05-27 23:03] LABS: BASO % 0.4 % (0-2.0); EOS % 1.2 % (0-4.5); HEMATOCRIT 39.2 % (32.4-45.2); HEMOGLOBIN 13.6 GM/dL (10.7-15.3); LYMPH % 19.1 % (8-40); MCH 30.2 pg (25.7-33.7); MCHC 34.7 g/dl (32.0-36.0); MEAN CELL VOLUME 87.1 fl (80-96); MEAN PLT VOLUME 7.4 fl (7.5-11.1); MONO % 5.5 % (3.8-10.2); NEUT % 73.8 % (42.8-82.8); PLATELET COUNT 309 10^3/uL (134-434); RDW 12.8 % (11.6-15.6); WHITE BLOOD COUNT 8.7 K/mm3 (4.0-10.0)
[2022-05-27 23:13] LABS: ACTIVATED PTT 33.2 SECONDS (25.2-36.5); INR 1.05 (0.83-1.09); PROTHROMBIN TIME (PATIENT) 12.1 SEC (9.7-13.0)
[2022-05-27] MEDS ORDERED: ONDANSETRON 4 MG/2 ML VIAL ONE (23:26)
[2022-05-27 23:31] LABS: CALCIUM 8.8 mg/dL (8.5-10.1)
[2022-05-27 23:32] LABS: BLOOD UREA NITROGEN 6.7 mg/dL (7-18)
[2022-05-27 23:35] LABS: CREATININE 0.7 mg/dL (0.55-1.3)
[2022-05-27 23:36] LABS: BILIRUBIN,TOTAL 0.4 mg/dL (0.2-1); TOT PROT 7.8 g/dl (6.4-8.2)
[2022-05-27 23:45] LABS: EPI CELLS 24 /uL (0-25.1); HYALINE CASTS 1 /uL (0-3.1); URINE APPEARANCE CLOUDY; URINE BACTERIA 64 /uL (0-1359); URINE BILIRUBIN NEGATIVE (NEGATIVE); URINE COLOR YELLOW; URINE GLUCOSE (UA) NEGATIVE (NEGATIVE); URINE KETONE NEGATIVE (NEGATIVE); URINE LEUK ESTERASE TRACE (NEGATIVE); URINE NITRITE NEGATIVE (NEGATIVE); URINE PROTEIN 1+ (NEGATIVE); URINE RBC 3386 /uL (0-23.9); URINE UROBILINOGEN 0.2 mg/dL (0.2-1.0); URINE WBC 129 /uL (0-25.8)
[2022-05-27 23:46] LABS: HCG,QUALITATIVE URINE Negative
[2022-05-28] MEDS ORDERED: SODIUM CHLORIDE 0.9% 500 ML INFUS.BAG IV ONE (01:09)
[2022-05-28] MEDS ORDERED: KETOROLAC TROMETHAMINE 15 MG/ML VIAL IM PRN (01:31)
[2022-05-28] MEDS ORDERED: CEFTRIAXONE 1 GM in DEXTROSE 5%-WATER - 50 ML IVPB ONE (02:15)
[2022-05-28] MEDS ORDERED: CEFTRIAXONE 1 GM/50 ML BAG ONE (02:46)
[2022-05-28] MEDS: KETOROLAC TROMETHAMINE 15 MG/ML VIAL IVPUSH PRN ×2 (03:10→09:52)
[2022-05-28] MEDS ORDERED: ONDANSETRON 4 MG/2 ML VIAL IVPUSH PRN (05:23)
[2022-05-28 06:45] LABS: HEMATOCRIT 36.8 % (32.4-45.2); HEMOGLOBIN 12.5 GM/dL (10.7-15.3); MCH 29.5 pg (25.7-33.7); MCHC 33.9 g/dl (32.0-36.0); MEAN CELL VOLUME 86.9 fl (80-96); MEAN PLT VOLUME 7.9 fl (7.5-11.1); PLATELET COUNT 290 10^3/uL (134-434); RBC 4.24 M/mm3 (3.60-5.2); RDW 12.8 % (11.6-15.6); WHITE BLOOD COUNT 9.7 K/mm3 (4.0-10.0)
[2022-05-28 07:07] LABS: CALCIUM 8.2 mg/dL (8.5-10.1)
[2022-05-28 07:08] LABS: ALBUMIN 3.5 g/dl (3.4-5.0); BLOOD UREA NITROGEN 7.3 mg/dL (7-18)
[2022-05-28 07:11] LABS: CREATININE 0.6 mg/dL (0.55-1.3); PHOSPHOROUS 3.3 mg/dL (2.5-4.9)
[2022-05-28 07:12] LABS: BILIRUBIN,TOTAL 0.4 mg/dL (0.2-1)
[2022-05-28 07:13] LABS: TOT PROT 6.9 g/dl (6.4-8.2)
[2022-05-28 08:04] VITALS: BMI 31.6
[2022-05-28] MEDS: SODIUM CHLORIDE 1,000 ML IV SCH (08:28)
[2022-05-28] MEDS: TAMSULOSIN HCL 0.4 MG CAP PO SCH (08:28)
[2022-05-28] MEDS: QUEtiapine FUMARATE 100 MG TABLET (FP) PO PRN (08:58)
[2022-05-28] MEDS: PANTOPRAZOLE SODIUM 40 MG VIAL IVPUSH SCH (09:27)
[2022-05-28] MEDS: ENOXAPARIN NA (PORCINE) 40 MG/0.4 ML DISP.SYRIN SQ SCH (12:20)
[2022-05-29] MEDS: SODIUM CHLORIDE 1,000 ML IV SCH ×3 (03:27→20:47)
[2022-05-29] MEDS: TAMSULOSIN HCL 0.4 MG CAP PO SCH (08:18)
[2022-05-29] MEDS: PANTOPRAZOLE SODIUM 40 MG VIAL IVPUSH SCH (09:56)
[2022-05-29] MEDS: QUEtiapine FUMARATE 100 MG TABLET (FP) PO PRN ×2 (09:56→20:41)
[2022-05-29] MEDS: ENOXAPARIN NA (PORCINE) 40 MG/0.4 ML DISP.SYRIN SQ SCH (10:20)
[2022-05-29] MEDS ORDERED: MIDAZOLAM HCL 2 MG/2 ML SINGLE DOSE VIAL ONE (17:18)
[2022-05-29] MEDS ORDERED: PROPOFOL 20 ML ONE ×2 (17:19→18:33)
[2022-05-29] MEDS ORDERED: LIDOCAINE HCL/PF 2% SDV 5ML VIAL ONE (17:24)
[2022-05-29] MEDS ORDERED: ONDANSETRON 4 MG/2 ML VIAL IVPUSH PRN ×3 (17:41→19:09)
[2022-05-29] MEDS ORDERED: LACTATED RINGERS SOLUTION 1,000 ML IV SCH ×2 (17:45→19:09)
[2022-05-29] MEDS ORDERED: KETOROLAC TROMETHAMINE 30 MG/1 ML VIAL ONE (18:34)
[2022-05-30] MEDS: KETOROLAC TROMETHAMINE 15 MG/ML VIAL IVPUSH PRN ×2 (00:30→10:10)
[2022-05-30 01:37] VITALS: RESP 18
[2022-05-30] MEDS: SODIUM CHLORIDE 1,000 ML IV SCH (07:03)
[2022-05-30] MEDS ORDERED: ENOXAPARIN NA (PORCINE) 40 MG/0.4 ML DISP.SYRIN SQ SCH (10:00)
[2022-05-30] MEDS ORDERED: PANTOPRAZOLE SODIUM 40 MG VIAL IVPUSH SCH (10:00)
[2022-05-30] MEDS ORDERED: CEFTRIAXONE 1 GM in DEXTROSE 5%-WATER - 50 ML IVPB SCH (10:00)
[2022-05-30 10:08] VITALS: BP 178/82; PULSE 107; TEMP 98.1
[2022-05-30] MEDS: QUEtiapine FUMARATE 100 MG TABLET (FP) PO PRN (10:10)
== END 2022-05-30 15:10 | disposition home or self-care (01) | DRG 465 ==
LOC: JER 20:54 → JERBED 05-28 01:08 → J6S 05-28 08:08
PROVIDERS: ADMIT Internal Medicine; ATTEND Internal Medicine
PROC: BT1FZZZ Fluoroscopy of Left Kidney, Ureter and Bladder (ICD-10-PCS; principal; 2022-05-29 17:30)
PROC: 0T778DZ Dilation of Left Ureter with Intraluminal Device, Via Natural or Artificial Opening Endoscopic (ICD-10-PCS; 2022-05-29 17:30)
PROC: 0TJB8ZZ Inspection of Bladder, Via Natural or Artificial Opening Endoscopic (ICD-10-PCS; 2022-05-29 17:30)
DX: N13.2 Hydronephrosis with renal and ureteral calculous obstruction (principal); F31.9 Bipolar disorder, unspecified
CPT/HCPCS: 36415; 71045-TC-FY; 74176-TC; 76000-TC-FY; 80053; 81003; 83735; 84100; 84703; 85025; 85027; 85610; 85730; 86850; 86900; 86901; 87086; 93005; 93010; 94760; 99285-25; C9803-CS; U0003; U0005

== ENCOUNTER 2022-06-03 04:09 | Day surgery (SDC) | payer OTHER ==
[2022-05-31 11:12] VITALS: BMI 23.4
[2022-06-03] MEDS ORDERED: oxyCODONE HCL 5 MG TABLET PO PRN (11:05)
[2022-06-03] MEDS ORDERED: ONDANSETRON 4 MG/2 ML VIAL IVPUSH PRN (11:05)
[2022-06-03] MEDS ORDERED: ACETAMINOPHEN 500 MG TABLET (FP) PO PRN (11:05)
[2022-06-03] MEDS ORDERED: MIDAZOLAM HCL 2 MG/2 ML SINGLE DOSE VIAL ONE (11:06)
[2022-06-03] MEDS ORDERED: LACTATED RINGERS SOLUTION 1,000 ML IV SCH (11:15)
[2022-06-03 12:13] VITALS: RESP 18
[2022-06-03 12:14] VITALS: BP 120/80; PULSE 82; TEMP 97.5
== END 2022-06-03 12:15 | disposition home or self-care (01) ==
LOC: JASU-SURG 04:09
PROVIDERS: ATTEND Urology
PROC: 0TF7XZZ Fragmentation in Left Ureter, External Approach (ICD-10-PCS; principal; 2022-06-03 11:07)
DX: N20.1 Calculus of ureter (principal)
CPT/HCPCS: 81025

== ENCOUNTER 2022-09-09 04:28 | Day surgery (SDC) | payer OTHER ==
[2022-09-04 09:08] VITALS: BMI 26.4
[2022-09-09] MEDS ORDERED: ONDANSETRON 4 MG/2 ML VIAL ONE (15:58)
[2022-09-09] MEDS ORDERED: FENTANYL CITRATE/PF 50 MCG/ML VIAL ONE ×2 (17:52→18:00)
[2022-09-09] MEDS ORDERED: MIDAZOLAM HCL 2 MG/2 ML SINGLE DOSE VIAL ONE (17:52)
[2022-09-09] MEDS ORDERED: PROPOFOL 20 ML ONE (18:01)
[2022-09-09 19:29] VITALS: RESP 20; TEMP 97.1
[2022-09-09 19:32] VITALS: BP 110/74; PULSE 71
== END 2022-09-09 19:10 | disposition home or self-care (01) ==
LOC: JASU-SURG 04:28
PROVIDERS: ATTEND Urology
PROC: 0TF4XZZ Fragmentation in Left Kidney Pelvis, External Approach (ICD-10-PCS; principal; 2022-09-09 17:00)
DX: N20.0 Calculus of kidney (principal)
CPT/HCPCS: 81025